=== PATIENT | female | born 1980 | race Caucasian/White ===

== ENCOUNTER → 2020-07-23 12:22 | Outpatient (BNVA) | payer OTHER, SELFPAY | PROVIDERS: PCP Family Medicine; Visit Provider Dietitian, Registered | DX: Z76.89 Persons encountering health services in other specified circumstances (principal) ==

== ENCOUNTER → 2020-08-12 13:55 | Outpatient (BNVA) | payer OTHER, SELFPAY | PROVIDERS: PCP Family Medicine; Visit Provider Surgery | DX: E66.3 Overweight (principal); Z68.26 Body mass index [BMI] 26.0-26.9, adult; Z98.84 Bariatric surgery status | CPT/HCPCS: 99212 ==

== ENCOUNTER 2020-09-02 08:54 | Day surgery (SDC) | payer OTHER, SELFPAY ==
--- NOTE | 2020-09-01 12:07 | HO.ANESPROP2 ---
HPI - Anesthesia Eval Consult details Narrative: 39yo F for Upper Endoscopy s/p LRYGB 05/19/20 [facility] Past Medical History Medical History Depression HTN (hypertension) Metabolic syndrome Overweight with body mass index (BMI) 25.0-29.9 PCOS (polycystic ovarian syndrome) Sleep apnea Family History Family History Father No problems noted. Mother Alzheimer's dementia Surgical History Surgical History History of adenoidectomy Hx of gastric bypass Hx of tonsillectomy S/P gastric bypass S/P laparoscopic cholecystectomy Social History Social History Alcohol intake: never Smoking Status: Current every day smoker Packs Per Day: 0.5 Cigarettes Per Day: 10.0 Second Hand Smoke Exposure: No Use of substances other than those prescribed or required for medical reasons: No Advance Directives: No Advance Directives Information Provided: No Advance Directives on File: No Meds Allergies Allergy/AdvReac Type Severity Reaction Status Date / Time No Known Allergies Allergy Verified 09/02/20 09:37 [No Known Allergies*] Home Medications Medication Instructions Recorded Confirmed Type mbiihnpj-dlfuyhvn-ynay 45 mg-folic cap PO 08/12/20 08/12/20 History acid 800 mcg-vit K 120 mcg capsule venlafaxine 150 mg 150 mg PO DAILY 08/12/20 08/12/20 History capsule,extended release 24 hr Exam Exam Date and Time: September 01, 2020 1207 Pertinent Lab Results Pertinent Lab Results: Laboratory Tests 05/20/20 05/20/20 04:02 04:02 WBC 13.9 H Hgb 12.8 Hct 38.5 Plt Count 220 Sodium 137 Potassium 4.0 Chloride 104 BUN 7 L Creatinine 0.68
[2020-09-01 14:17] VITALS: BMI 26.1
[2020-09-02 09:08] VITALS: BP 112/69; PULSE 54; RESP 16; TEMP 37.2; O2SAT 100
[2020-09-02 09:22] LABS: UPreg QC Valid YES
[2020-09-02 09:23] LABS: Urine Pregnancy NEGATIVE (NEGATIVE)
[2020-09-02] MEDS: Lactated Ringers 1,000 ML 100 ML IVCONT (09:36)
--- NOTE | 2020-09-02 10:41 | MHC.SHP ---
Pre-Procedural Eval Section A The patient is an INPATIENT: No The History & Physical has been completed within 30 days and I have reviewed it.: Yes Section B Chief Complaint: Epigastric Pain, Post gastric bypass Details of Present Illness: Epigastric pain after gastric bypass Relevant Family History (Specify if Yes): Yes Relevant Social History: Tobacco Use (re-started smoking) Present Medications: see Short Stay Collaborative assessment Medical History: No relevant PMH History of Previous Operations: Relevant previous surgery/procedure and date(s) (lap gastric bypass) Allergies: Allergies Allergy/AdvReac Type Severity Reaction Status Date / Time No Known Allergies Allergy Verified 09/02/20 09:37 [No Known Allergies*] Review of Systems Sugical H&P ROS: Negative: Constitution, Cardiovascular, Respiratory, Neurological, Psychiatric, Hem-Onc, Allergic/Immunologic, Gastrointestinal, Genitourinary, Musculoskeletal, Integumentary, Endocrine and Eyes/Ears/Nose/Throat Exam Surgical H&P Exam: Normal: HEENT, Normal: Heart, Normal: Lungs, Normal: Extremities, Normal: Abdomen, Normal: Skin and Normal: Neurological Plan Diagnosis/Plan: Unchanged (Upper endoscopy to assess patient's symptoms and rule out an anastomotic ulcer) Patient has been examined and remains a candidate for the planned procedure
--- NOTE | 2020-09-02 11:32 | HO.ANESPROP2 ---
FORMERLY [facility] Past Medical History Medical History Depression HTN (hypertension) Metabolic syndrome Overweight with body mass index (BMI) 25.0-29.9 PCOS (polycystic ovarian syndrome) Sleep apnea Family History Family History Father No problems noted. Mother Alzheimer's dementia Surgical History Surgical History History of adenoidectomy Hx of gastric bypass Hx of tonsillectomy S/P gastric bypass S/P laparoscopic cholecystectomy Social History Social History Alcohol intake: never Smoking Status: Current every day smoker Packs Per Day: 0.5 Cigarettes Per Day: 10.0 Second Hand Smoke Exposure: No Use of substances other than those prescribed or required for medical reasons: No Advance Directives: No Advance Directives Information Provided: No Advance Directives on File: No Meds Allergies Allergy/AdvReac Type Severity Reaction Status Date / Time No Known Allergies Allergy Verified 09/02/20 09:37 [No Known Allergies*] Home Medications Medication Instructions Recorded Confirmed Type mtppijnw-unldbsva-pnhc 45 mg-folic cap PO 08/12/20 08/12/20 History acid 800 mcg-vit K 120 mcg capsule venlafaxine 150 mg 150 mg PO DAILY 08/12/20 08/12/20 History capsule,extended release 24 hr Exam Exam Date and Time: September 02, 2020 1132 Height,Weight and Vital Signs: Height 5 ft 10 in Weight 82.667 kg Last Vital Signs Temp 99 F 09/02/20 09:08 Pulse 54 09/02/20 09:08 Resp 16 09/02/20 09:08 BP 112/69 09/02/20 09:08 Pulse Ox 100 09/02/20 09:08 Pertinent Lab Results Pertinent Lab Results: Laboratory Tests 09/02/20 09:05 Urine Test NEGATIVE Airway Mallampati Class: II TM Dist: >3cm Neck ROM: Full
[2020-09-02 12:01] VITALS: BP 118/65; PULSE 65; RESP 12; TEMP 36.9; O2SAT 99
--- NOTE | 2020-09-02 12:04 | P.BOP_ITS ---
Brief Operative Note Date of Service: 09/02/20 Pre-op diagnosis: Epigastric pain, s/p gastric bypass Post-op diagnosis: same (1) Anastomotic ulcer, 2) 2cm hiatal hernia, 3) small anastomosis in relation to the gastric pouch size) Procedure: PROCEDURE DATE: 09/02/2020 PREOPERATIVE DIAGNOSIS: Epigastric pain, s/p gastric bypass POSTOPERATIVE DIAGNOSIS: Same as above. 1) anastomotic ulcer, 2) 2cm hiatal hernia, 3) small anastomosis in relation to the pouch size PROCEDURE: Twajdvco-adrhkc-wrxqbrghjqk with biopsies Surgeon: Fabian Taylor M.D.. Ph.D. Facilities Management Executive: None Anesthesia: IV sedation Estimated blood loss: Minimal FINDINGS AND PROCEDURE: OPERATIVE INDICATIONS: The patient is a 39 year old female known to me who underwent a laparoscopic gastric bypass by Dr. Palmer. The patient was doing well but recently re-started smoking and developed epigastric pain. Based on this information I recommended an upper endoscopy to evaluate the patient's symptoms. Risks and complications of the surgery were discussed with the patient in advance particularly the possibility of perforation or bleeding that may require surgical intervention. The patient understood the risks and was in agreement with the plan. PROCEDURE: After informed consent was obtained by the patient, the patient was transferred to the Operating Room and was placed in the supine position. After successful induction of IV sedation, a mouth block was placed and the patient was placed in the left lateral decubitus position. An upper endoscopy was performed next, the oropharynx and esophagus appeared within the normal limits. There was a 2cm hiatal hernia. The z-line was smooth. The gastric pouch was entered, appeared to be of normal size. There was no gastritis and the gastrojejunostomy was patent but its size was small in relation to the pouch size. A biopsy was obtained from the gastric pouch. No significant bleeding was noted from any of the biopsy site. There was an anastomotic ulcer at the gastro-jejunostomy. There was surrounding edema and erythema. At that point the scope was advanced into the proximal small intestine (proximal Marilu limb) which appeared to be normal. The Marilu limb and the pouch were decompressed and the scope was withdrawn from the patient's mouth. The patient was awaken and was transferred in stable condition to the Recovery Room for further care. I was present and performed all steps of the procedure. There were no residents to assist with this case. Fabian Taylor M.D., Ph.D. Surgeon: Jarrett Taylor MD Anesthesia: MAC Estimated blood loss (mL): 5 IV fluids (mL): 250 Urine output (mL): 0 (No Jain to record) Pathology: other (Gastric pouch x1) Condition: stable Disposition: PACU
[2020-09-02 12:12] VITALS: BP 112/67; PULSE 60; RESP 18; TEMP 36.2; O2SAT 97
--- NOTE | 2020-09-02 12:32 | HO.POSTANES ---
Post Anesthesia Evaluation Post Anesthesia Evaluation Vital Signs: Vital Signs Temp Pulse Resp BP Pulse Ox 09/02/20 12:12 97.2 F 60 18 112/67 97 09/02/20 12:01 98.4 F 65 12 118/65 99 09/02/20 09:08 99 F 54 16 112/69 100 Anesthesia: Monitored Mental Status: Awake Pain Control: Satisfactory Nausea/Vomiting: None Hydration: Adequate Anesthesia-Related Issues: No Anes. Related Issues
== END 2020-09-02 12:35 | disposition home or self-care (01) ==
LOC: HO.SSS 08:55
PROVIDERS: Nurse Practitioner; Visit Provider Surgery
PROC: 0DJ08ZZ Inspection of Upper Intestinal Tract, Via Natural or Artificial Opening Endoscopic (ICD-10-PCS; CPT 43235; principal; 2020-09-02 09:50)
DX: K28.9 Gastrojejunal ulcer, unspecified as acute or chronic, without hemorrhage or perforation (principal); Z98.84 Bariatric surgery status; K44.9 Diaphragmatic hernia without obstruction or gangrene; E88.81 Metabolic syndrome and other insulin resistance; E66.3 Overweight; Z68.26 Body mass index [BMI] 26.0-26.9, adult; I10 Essential (primary) hypertension; E28.2 Polycystic ovarian syndrome; F17.210 Nicotine dependence, cigarettes, uncomplicated; G47.30 Sleep apnea, unspecified; Z90.49 Acquired absence of other specified parts of digestive tract; Z79.899 Other long term (current) drug therapy
CPT/HCPCS: 43239; 81025; 88305; 88342; J1100; J2250

== ENCOUNTER → 2020-09-03 08:04 | Outpatient (BNVA) | payer OTHER, SELFPAY | PROVIDERS: PCP Internal Medicine; Referring Provider Internal Medicine; Visit Provider Physician Assistant | DX: Z76.89 Persons encountering health services in other specified circumstances (principal) ==

== ENCOUNTER 2020-09-22 07:32 | Day surgery (SDC) | payer OTHER, SELFPAY ==
[2020-09-16 14:19] VITALS: BMI 26.1
--- NOTE | 2020-09-21 12:43 | HO.ANESPROP2 ---
Documented by User: Mya Rossi 09/21/20 12:46 HPI - Anesthesia Eval Consult details Narrative: 39yo F for Upper Endoscopy s/p gastric bypass 05/2020 Last EGD 08/2020 [facility] Past Medical History Medical History Depression HTN (hypertension) Intestinal malabsorption following gastrectomy Marginal ulcer Metabolic syndrome Overweight with body mass index (BMI) 25.0-29.9 PCOS (polycystic ovarian syndrome) Sleep apnea Family History Family History Father No problems noted. Mother Alzheimer's dementia Surgical History Surgical History History of adenoidectomy History of esophagogastroduodenoscopy (EGD) Hx of gastric bypass Hx of tonsillectomy S/P gastric bypass S/P laparoscopic cholecystectomy Social History Social History Alcohol intake: never Smoking Status: Former smoker Packs Per Day: 0.5 Cigarettes Per Day: 10.0 Second Hand Smoke Exposure: No Use of substances other than those prescribed or required for medical reasons: No Advance Directives: No Advance Directives Information Provided: Yes Meds Allergies Allergy/AdvReac Type Severity Reaction Status Date / Time No Known Allergies Allergy Verified 09/02/20 09:37 [No Known Allergies*] Home Medications Medication Instructions Recorded Confirmed Type zvkoaace-uocwfreu-syva 45 mg-folic 1 cap PO DAILY 08/12/20 09/16/20 History acid 800 mcg-vit K 120 mcg capsule venlafaxine 150 mg 150 mg PO DAILY 08/12/20 09/16/20 History capsule,extended release 24 hr Exam Exam Date and Time: September 21, 2020 1243 Height,Weight and Vital Signs: Height 5 ft 10 in Weight 82.554 kg Assessment and Plan Assessment Anesthesia Assessment: Chart Reviewed Documented by User: Evita Lara 09/22/20 08:07 [facility] Past Medical History Medical History Depression HTN (hypertension) Intestinal malabsorption following gastrectomy Marginal ulcer Metabolic syndrome Overweight with body mass index (BMI) 25.0-29.9 PCOS (polycystic ovarian syndrome) Sleep apnea Family History Family History Father No problems noted. Mother Alzheimer's dementia Surgical History Surgical History History of adenoidectomy History of esophagogastroduodenoscopy (EGD) Hx of gastric bypass Hx of tonsillectomy S/P gastric bypass S/P laparoscopic cholecystectomy Social History Social History Alcohol intake: never Smoking Status: Former smoker Packs Per Day: 0.5 Cigarettes Per Day: 10.0 Second Hand Smoke Exposure: No Use of substances other than those prescribed or required for medical reasons: No Advance Directives: No Advance Directives Information Provided: Yes Meds Allergies Allergy/AdvReac Type Severity Reaction Status Date / Time No Known Allergies Allergy Verified 09/02/20 09:37 [No Known Allergies*] Home Medications Medication Instructions Recorded Confirmed Type yfyxcfdy-blrgcldc-siwc 45 mg-folic 1 cap PO DAILY 08/12/20 09/16/20 History acid 800 mcg-vit K 120 mcg capsule venlafaxine 150 mg 150 mg PO DAILY 08/12/20 09/16/20 History capsule,extended release 24 hr Exam Airway Mallampati Class: II TM Dist: >3cm Neck ROM: Full Loose/Missing/Broken Teeth: No Heart: RRR Lungs: CTA Assessment and Plan Assessment Anesthesia Assessment: Anesthesia Plan Discussed and Chart Reviewed Final Anesthetic Review NPO: Yes ASA Class: II Final Preanesthetic Review: Meds/Allgs Chart Reviewed, Consent Obtained/Reviewed and Anes Risks/Benef Reviewed Patient Risk: Low Procedure Risk: Intermediate Anesthetic Plan Anesthetic Plan: MAC: Disposition: Standard PACU
--- NOTE | 2020-09-21 17:21 | MHC.SHP ---
Pre-Procedural Eval Section B Chief Complaint: Ulcer Allergies: Allergies Allergy/AdvReac Type Severity Reaction Status Date / Time No Known Allergies Allergy Verified 09/02/20 09:37 [No Known Allergies*] Plan Patient has been examined and remains a candidate for the planned procedure
--- NOTE | 2020-09-21 17:21 | PM.PNGS ---
Subjective Subjective Date of Service: 09/21/20 Interval history: patient is few months status post gastric bypass and noted to have started smoking again about half pack to a pack cigarettes per day 1 week after surgery. Little over a month ago patient was encouraged to quit smoking. Shortly thereafter patient had epigastric pain. She had an endoscopy which documented marginal ulcer. Patient is now here for repeat endoscopy to evaluate improvement and marginal ulcer. Physical Exam Vital Signs: Vital Signs: Body Mass Index 26.1 Const: General: cooperative, healthy appearing and comfortable Resp: Effort & Inspection: normal respiratory effort and no audible wheezes Auscultation: clear to auscultation bilaterally Cardio: Heart sounds: S1 normal heart sound present, S2 normal heart sound present and normal S1 and S2 Extrem: General: Yes normal to inspection, Yes no pedal edema and Yes no calf tenderness Progress Note: A&P Assessment and plan (1) Marginal ulcer: Status: Acute Assessment and Plan: Patient with known marginal ulcer here for repeat endoscopy to evaluate healing of marginal ulcer. Time Spent With Patient Time: Total time spent is greater than 50% in coordination of care (as documented) at patient's floor/unit and/or counseling patient: Time with patient: less than 15 minutes
[2020-09-22 07:43] VITALS: BMI 26.1
[2020-09-22 07:49] VITALS: BP 111/54; PULSE 51; RESP 16; TEMP 37.1; O2SAT 99
[2020-09-22 08:42] VITALS: BP 96/42; PULSE 52; RESP 12; TEMP 36.4; O2SAT 99
[2020-09-22] MEDS: ondansetron HCL 4 MG/2 ML VIAL IVPUSH (08:54)
[2020-09-22 08:57] VITALS: BP 103/69; PULSE 57; RESP 16; O2SAT 96
--- NOTE | 2020-09-22 09:06 | OP_ITS ---
SURGEON: Vickie Palmer MD PREOPERATIVE DIAGNOSIS: POSTOPERATIVE DIAGNOSIS: PROCEDURE PERFORMED: ESTIMATED BLOOD LOSS: COMPLICATIONS: None. ANESTHESIA: Total intravenous anesthesia with propofol given by the nurse surgical asst. ASSISTANTS: None. SPECIMENS: PREPROCEDURE DIAGNOSIS: Anastomotic ulcerations, status post gastric bypass. POSTPROCEDURE DIAGNOSIS: Healed anastomotic ulcer. PROCEDURES PERFORMED: 1. esophagogastrojejunoscopy 2. Enteroscopy to 90 cm from incisors. FINDINGS: No evidence of hiatal hernia. Normal gastric bypass anatomy. No evidence of anastomotic ulcer. CONDITION: Postprocedure, good. DESCRIPTION OF PROCEDURE: The patient was brought into the operating room, placed on the stretcher in the left lateral decubitus position. A safety time-out was performed. A total intravenous anesthesia was given using propofol by the nurse surgical asst. Once the patient was adequately sedated, gastroscope was placed into posterior oropharynx, passed down the esophagus, evaluating esophageal mucosa which was normal. The GE junction was located at 43 cm from the incisors. There was no evidence of ulceration of the esophagus or hiatal hernia. Gastroscope was passed into the gastric pouch. The anastomosis was located at 48 cm from the incisors. There was no evidence of anastomotic ulcer. The gastroscope was passed into the efferent limb of the Marilu limb down to 90 cm from the incisors, all of which was normal. Gastroscope was retracted back to the stomach. Stomach was desufflated and the gastroscope was removed without difficulty. The patient tolerated the procedure well and was sent to recovery room in stable condition. Vickie Palmer MD UM/MODL / [id number] MTDD
[2020-09-22 09:10] VITALS: BP 111/67; PULSE 58; RESP 18; O2SAT 98
--- NOTE | 2020-09-22 09:23 | HO.POSTANES ---
Post Anesthesia Evaluation Post Anesthesia Evaluation Vital Signs: Vital Signs Temp Pulse Resp BP Pulse Ox 09/22/20 09:10 58 18 111/67 98 09/22/20 08:57 57 16 103/69 96 09/22/20 08:42 97.5 F 52 12 96/42 L 99 09/22/20 07:49 98.7 F 51 16 111/54 L 99 Anesthesia: Monitored Mental Status: Awake Pain Control: Satisfactory Nausea/Vomiting: None Hydration: Adequate Anesthesia-Related Issues: No Anes. Related Issues
== END 2020-09-22 09:28 | disposition home or self-care (01) ==
PROVIDERS: Visit Provider Surgery
PROC: 0DJ08ZZ Inspection of Upper Intestinal Tract, Via Natural or Artificial Opening Endoscopic (ICD-10-PCS; CPT 43235; principal; 2020-09-22 08:00)
DX: K28.9 Gastrojejunal ulcer, unspecified as acute or chronic, without hemorrhage or perforation (principal); Z98.84 Bariatric surgery status; E66.3 Overweight; E88.81 Metabolic syndrome and other insulin resistance; I10 Essential (primary) hypertension; E28.2 Polycystic ovarian syndrome; F32.9 Major depressive disorder, single episode, unspecified; Z90.49 Acquired absence of other specified parts of digestive tract; F17.210 Nicotine dependence, cigarettes, uncomplicated; Z79.899 Other long term (current) drug therapy
CPT/HCPCS: 43235; 99024; J2405; J3010

== ENCOUNTER → 2020-10-26 08:19 | Outpatient (BNVA) | payer OTHER, SELFPAY | PROVIDERS: Visit Provider Physician Assistant | DX: Z76.89 Persons encountering health services in other specified circumstances (principal) ==

== ENCOUNTER 2020-10-28 11:12 | Outpatient (REF) | payer OTHER, SELFPAY ==
[2020-10-28 13:21] LABS: MANUAL DIFF FLAG NO
[2020-10-28 13:46] LABS: Basophils Percent Auto 0.5 % (0-2); Eosinophils Absolute Auto 0.1 X10*3/uL (0.0-0.4); Eosinophils Percent Auto 1.9 % (0-4); Hematocrit 44.8 % (37-47); Hemoglobin 14.7 g/dl (12.0-16.0); Imm Gran Abs Auto 0.03 X10*3/uL (0.00-0.03); Imm Gran Pct Auto 0.4 % (0.0-0.4); Lymphocytes Absolute Auto 2.4 X10*3/uL (1.2-4.9); Lymphocytes Percent Auto 33.2 % (20-40); Mean Corpuscular HGB Conc 32.8 g/dl (31.0-35.0); Mean Corpuscular Volume 94.5 fL (80-98); Mean Platelet Volume 11.1 fL (9.4-12.3); Monocytes Absolute Auto 0.5 X10*3/uL (0.1-1.2); Monocytes Percent Auto 7.1 % (2-11); Neutrophils Absolute Auto 4.2 X10*3/uL (2.0-8.3); Neutrophils Percent Auto 56.9 % (45-73); Platelet Count 234 X10*3/uL (160-400); Red Blood Count 4.74 X10*6/uL (4.20-5.50); Red Cell Distribution Width 12.7 % (11.0-16.0); White Blood Count 7.3 X10*3/uL (4.8-10.8)
[2020-10-28 13:50] LABS: Estimated Average Glucose 94 mg/dL; Hemoglobin A1c % 4.9 %
[2020-10-28 14:04] LABS: Alanine Aminotransferase 33 U/L (0-31); Albumin Level 4.2 g/dL (3.5-5.0); Alkaline Phosphatase 100 U/L (39-117); Anion Gap 12 (12-20); Aspartate Amino Transferase 32 U/L (5-31); Bilirubin Total 0.6 mg/dL (0.0-1.0); Blood Urea Nitrogen 8 mg/dL (9-16); C Reactive Protein 0.02 mg/dL (< or = 0.50); Calcium 8.7 mg/dL (8.4-10.2); Carbon Dioxide 28 mmol/L (22-29); Chloride 105 mmol/L (96-108); Cholesterol 127 mg/dL; Estimated Glomerular Filt Rate > 60; Glucose Fasting 82 mg/dL (60-99); HDL Cholesterol 40 mg/dL; Iron 77 mcg/dL (30-160); LDL Cholesterol Calculated 77 mg/dl; Percent Iron Saturation 22 % (15-50); Potassium 4.1 mmol/l (3.3-5.1); Sodium 141 mmol/L (135-145); Total Iron Binding Capacity 348 mcg/dL (228-428); Total Protein 6.2 g/dL (6.5-8.0); Triglycerides 51 mg/dL; Unsaturated Iron Binding 271 ug/dL
[2020-10-28 14:28] LABS: Ferritin 20 ng/mL (10-122); TSH reflex Free T4 1.29 mIU/mL (0.32-4.0); Vitamin D 25-OH Total 48.3 ng/mL (>30)
[2020-10-28 14:32] LABS: Folate > 20.0 ng/mL (> or = 4.0); Vitamin B12 467 pg/mL (200-900)
[2020-10-29 12:08] LABS: Insulin Level Total 4.6 uIU/mL
[2020-10-29 16:52] LABS: Calcium (PTHI) 9.1 mg/dL (8.6-10.2); PTHI 46 pg/mL (14-64)
[2020-10-30 15:37] LABS: Zinc 53 mcg/dL (60-130)
[2020-11-02 06:33] LABS: Vitamin B1 29 nmol/L (8-30)
[2020-11-03 17:47] LABS: Vitamin A 30 mcg/dL (38-98)
== END 2020-10-28 11:13 | disposition home or self-care (01) ==
LOC: HO.LAB 11:12
PROVIDERS: Absent Provider Physician Assistant; PCP Family Medicine; Visit Provider Surgery
DX: K91.2 Postsurgical malabsorption, not elsewhere classified (principal); K28.9 Gastrojejunal ulcer, unspecified as acute or chronic, without hemorrhage or perforation; F17.210 Nicotine dependence, cigarettes, uncomplicated; Z71.3 Dietary counseling and surveillance; Z98.84 Bariatric surgery status; Z79.899 Other long term (current) drug therapy
CPT/HCPCS: 36415; 80053; 80061; 82306; 82607; 82728; 82746; 83036; 83525; 83540; 83970; 84425; 84443; 84590; 84630; 85025; 86140; 99212

== ENCOUNTER → 2020-11-11 08:08 | Outpatient (BNVA) | payer OTHER, SELFPAY | PROVIDERS: PCP Family Medicine; Visit Provider Dietitian, Registered ==

== ENCOUNTER → 2020-11-26 08:36 | Outpatient (BNVA) | payer OTHER, SELFPAY | PROVIDERS: PCP Family Medicine; Visit Provider Surgery ==

== ENCOUNTER → 2021-01-14 08:07 | Outpatient (BNVA) | payer OTHER, SELFPAY | PROVIDERS: PCP Family Medicine; Visit Provider Physician Assistant ==

== ENCOUNTER 2021-01-14 09:11 | Inpatient (IN) | payer OTHER, SELFPAY ==
--- NOTE | ~2021-01-14 | CT_ITS ---
EXAMINATION: CT ABDOMEN AND PELVIS WITH CONTRAST CLINICAL INFORMATION: Intussusception. Compared to previous exams. COMPARISON: 01/14/2021 TECHNIQUE: Multidetector volumetric images were obtained from the superior aspect of the liver through the pubic symphysis following administration 85 mL of Omnipaque 350 intravenous contrast. Sagittal and coronal reformatted images were obtained on the technologist's workstation. Oral contrast: No This CT examination was performed using dose optimization techniques as appropriate, variously including the following: *Automated exposure control *Adjustment of mA and/or kV according to patient size (this includes techniques or standardized protocols for targeted exams where dose is matched to indication/reason for exam; i.e. extremities or head) *Use of iterative reconstruction technique DLP: 520 mGy-cm FINDINGS: LUNG BASES: The visualized lung bases are unremarkable. LIVER, GALLBLADDER, AND BILIARY TREE: The liver is normal in size, shape, and attenuation. No focal hepatic lesion or biliary ductal dilatation is present. Gallbladder not well seen. PANCREAS: Unremarkable. SPLEEN: Unremarkable. ADRENAL GLANDS: Unremarkable. KIDNEYS AND URETERS: The kidneys are normal in size, shape, and attenuation. No hydronephrosis, hydroureter, or calculi seen. No perinephric stranding. BLADDER: Unremarkable. GASTROINTESTINAL TRACT: Previously seen small bowel intussusception within the pelvis is no longer present. Submucosal edema present throughout the colon suggestive of colitis. There is also significant submucosal edema within the terminal and distal ileum. Marilu-en-Y gastrojejunostomy. ABDOMINAL WALL: No significant hernia is appreciated. LYMPH NODES: Normal. VASCULAR: Unremarkable. PELVIC VISCERA: Uterus and adnexa unremarkable. OSSEOUS STRUCTURES: Unremarkable. CT/CT abdomen pelvis w con IMPRESSION: * Previously seen small bowel intussusception within the pelvis has resolved. * Diffuse submucosal edema throughout the colon as well as the terminal ileum suggesting an enterocolitis. Infectious and inflammatory etiologies should be considered.
--- NOTE | ~2021-01-14 | CT_ITS ---
EXAMINATION: CT ABDOMEN AND PELVIS WITH CONTRAST CLINICAL INFORMATION: Nausea, vomiting and diarrhea with abdominal pain COMPARISON: None TECHNIQUE: Multidetector volumetric images were obtained from the superior aspect of the liver through the pubic symphysis following administration 85 mL of Omnipaque 350 intravenous contrast. Sagittal and coronal reformatted images were obtained on the technologist's workstation. Oral contrast: No This CT examination was performed using dose optimization techniques as appropriate, variously including the following: *Automated exposure control *Adjustment of mA and/or kV according to patient size (this includes techniques or standardized protocols for targeted exams where dose is matched to indication/reason for exam; i.e. extremities or head) *Use of iterative reconstruction technique DLP: 523 mGy-cm FINDINGS: LUNG BASES: The visualized lung bases are unremarkable. LIVER, GALLBLADDER, AND BILIARY TREE: The liver is normal in size, shape, and attenuation. No focal hepatic lesion. There is mild prominence of intrahepatic duct. The CBD is is normal caliber. The gallbladder is contracted and barely visible. PANCREAS: Unremarkable. SPLEEN: Unremarkable. ADRENAL GLANDS: Unremarkable. KIDNEYS AND URETERS: The kidneys are normal in size, shape, and attenuation. No hydronephrosis, hydroureter, or calculi seen. No perinephric stranding. BLADDER: Unremarkable. GASTROINTESTINAL TRACT: There is a distended loop of small bowel in the upper mid pelvis it has an appearance of intussusception. This segment is approximately 7 cm long. There is a small round lesion within the lumen of the inner bowel and may represent a small polyp or mass. It is best visualized on axial image 70/3. There is mild proximal small bowel distention with gas but no air-fluid level. The small bowel surgical sutures in the left upper pelvis from previous intervention. There is evidence of previous gastric bypass surgical changes. The stomach is nondistended. There is scattered stool in the left colon. There is mild mucosal thickening or submucosal mucosal fat deposition in the right colon which could be secondary to chronic inflammatory disease. No free air or free fluid seen. Oral contrast extends only into the proximal jejunal loops. ABDOMINAL WALL: No significant hernia is appreciated. LYMPH NODES: Normal. VASCULAR: Unremarkable. PELVIC VISCERA: The uterus is anteverted and unremarkable. There is focal enhancement seen along the posterior wall which may represent a small fibroid on on sagittal image 46/8. OSSEOUS STRUCTURES: Unremarkable CT/CT abdomen pelvis w con IMPRESSION: Small bowel intussusception upper mid pelvis with early partial small bowel obstruction. There is question of polyp or mass within the inner lumen of the intussuscepted bowel loop as described above. There are postsurgical changes mid small bowel loops and gastric bypass surgery. Nonspecific submucosal thickening and fat deposition ascending colon. Results were discussed with Zeinab Odom by phone in the ER at 12:35 PM
[2021-01-14 09:16] VITALS: BP 127/58; PULSE 93; RESP 14; TEMP 37.1; O2SAT 98; BMI 22.8
[2021-01-14] MEDS: Acetaminophen 325 MG TABLET 975 MG PO (10:33)
[2021-01-14] MEDS: ondansetron HCL 4 MG/2 ML VIAL IVPUSH (10:33)
[2021-01-14] MEDS: 0.9 % Sodium Chloride 1,000 ML 999 ML IVCONT (10:33)
[2021-01-14 10:36] LABS: Basophils Percent Auto 0.3 % (0-2); Hematocrit 41.3 % (37-47); Hemoglobin 13.8 g/dl (12.0-16.0); Imm Gran Abs Auto 0.04 X10*3/uL (0.00-0.03); Imm Gran Pct Auto 0.3 % (0.0-0.4); Lymphocytes Absolute Auto 0.6 X10*3/uL (1.2-4.9); Lymphocytes Percent Auto 4.1 % (20-40); MANUAL DIFF FLAG SCAN; Mean Corpuscular HGB Conc 33.4 g/dl (31.0-35.0); Mean Corpuscular Hemoglobin 31.2 pg (27.0-33.0); Mean Corpuscular Volume 93.2 fL (80-98); Mean Platelet Volume 10.2 fL (9.4-12.3); Monocytes Absolute Auto 1.1 X10*3/uL (0.1-1.2); Monocytes Percent Auto 7.4 % (2-11); Neutrophils Absolute Auto 13.5 X10*3/uL (2.0-8.3); Neutrophils Percent Auto 87.9 % (45-73); Platelet Count 205 X10*3/uL (160-400); Red Blood Count 4.43 X10*6/uL (4.20-5.50); SCAN SMEAR FLAG 1; White Blood Count 15.4 X10*3/uL (4.8-10.8)
[2021-01-14 10:39] LABS: INTERNATIONAL NORM RATIO 1.3 (0.9-1.1); Prothrombin Time 15.6 SEC (10.8-13.0)
[2021-01-14 10:41] LABS: Partial Thromboplastin Time 37.5 SEC (24.1-38.0)
--- NOTE | 2021-01-14 10:42 | ED_ITS ---
HPI - Abdominal Pain General Chief Complaint: Abdominal Pain Stated Complaint: abd pain Time Seen by Provider: 01/14/21 09:40 Source: patient Mode of arrival: ambulatory Limitations: no limitations History of Present Illness HPI narrative: A 40-year-old female with a past medical history of overweight status post gastric bypass performed by Dr. Taylor approximately 8 months ago who developed the marginal ulcer confirmed on endoscope 3 months after surgery was placed on a liquid protein diet, Carafate, pantoprazole then she had a repeat EGD on 09/22/2020 showed healed ulcer then patient was following up with bariatric surgeon and was doing well up until a few days ago where she reports she felt like she had food poisoning due to she just felt unwell then last night suddenly woke up with acute lower abdominal pain radiating to her lower back/bilateral hips which she describes 10/10 pain which has improved at this time /10. Patient is currently on Lexapro and pantoprazole although no other new meds. Patient also reports associated diarrhea she reports it has a horrible smell and it is mucousy in texture and she has gone over 100 times. She also reports associated chills. Patient was sent by her bariatric surgical PA Sheridan who recommended CT scan with p.o./IV contrast. NPO, IV fluids and p ain management. Patient denies recent travel, sick contacts or possible bad food exposure. Denies any other symptoms complaints or concerns at this time. Patient denies recent hospitalizations/[facility] visit/currently being on any antibiotics recently being on any antibiotics. MD elicited complaint: abdominal pain Pertinent past history: other (Gastric bypass) Onset (ago): day(s) (Since last night worse today) Pain Consistency: constant Location: RLQ and LLQ Severity: moderate Quality: dull Radiation: other (Lower back and bilateral hips) Exacerbating factors: nothing Associated symptoms: nausea, vomiting, diarrhea and chills Related Data Home Medications Medication Instructions Recorded Confirmed njwpreag-cgovvzug-olmi 45 mg-folic 1 cap PO BEDTIME 08/12/20 01/14/21 acid 800 mcg-vit K 120 mcg capsule calcium citrate 1,000 mg tablet 1,000 mg PO BEDTIME 10/28/20 01/14/21 omeprazole 20 mg PO BEDTIME 01/14/21 01/14/21 venlafaxine 1 tab PO BEDTIME 01/14/21 01/14/21 Allergies Allergy/AdvReac Type Severity Reaction Status Date / Time No Known Allergies Allergy Verified 01/14/21 08:47 [No Known Allergies*] Review of Systems Review of Systems Constitutional : +Chills, No Weight loss, No Fever, No Night Sweats, No Fatigue, No Malaise ENT/Mouth: No ear pain, No sore throat, No Difficulty swallowing Cardiovascular : No Chest Pain, No SOB, No Dyspnea on Exertion, No Orthopnea, NoEdema, No Palpitations Respiratory : No Cough, No Sputum, No Wheezing, No Dyspnea Gastrointestinal : + Nausea, + Vomiting, + lower abdominal pain, + Diarrhea, No blood streaked emesis, No coffee-ground emesis, No gross hematemesis, No blood streak stool, No gross hematochezia, No Melena Genitourinary : No irregular bleeding, No Dysuria, No Urinary Frequency, No Hematuria,No Urinary Incontinence, No Urgency, No Flank Pain Musculoskeletal : No joint pain, No Myalgias, No Joint Swelling Skin : No Skin Lesions, No rash Neuro : No Weakness, No Numbness, No Paresthesias, No Loss of Consciousness, NoDizziness, No Headache Psych : No Social Issues, Heme/Lymph: No Bruising, No Bleeding,No Lymphadenopathy Endocrine : No Polyuria, No Polydipsia, No Temperature Intolerance Yes all other systems are reviewed and are negative Physical Exam Vital Signs: Vital Signs: Last Vital Signs Temp 99.0 F 01/14/21 11:54 Pulse 63 01/14/21 14:44 Resp 14 01/14/21 14:44 BP 100/50 L 01/14/21 14:44 Pulse Ox 97 01/14/21 14:44 Body Mass Index 22.8 Course Course Course Narrative: 10:15am - 40-year-old female who is status post gastric bypass performed by Dr. Taylor approximately 8 months ago sent in by bariatric PA Sheridan Gonzalez for further evaluation treatment due to the patient has been having nausea/vom iting/mucus foul-smelling diarrhea with associated lower abdominal pain since last night with associated chills. Abdominal pain radiates to lower back and bilateral hips. - On exam patient is alert and oriented x3. In pain although no other acute distress. Vital signs are stable within normal limits. Patient is tolerating her secretions no active dry heaving or vomiting noted at this time. Lungs CTA. CV RRR. Abdomen is soft although patient with moderate tenderness diffusely worse in the lower quadrants. Not consistent with acute abdomen. No CVA tenderness is noted. - Concern for perforation vs Ulcer vs appendicitis vs gastritis vs UTI/pyelonephritis - Plan: Labs, CT scan f abd/pelvis c both PO/IV contrast, stool culture. Provide fluids. We will also provide 4 mg of IV Zofran. I offered the patient morphine although patient declined any strong pain medications and she cannot h ave any NSAIDs therefore I ordered Tylenol although the bariatric PA did not want the patient to have Tylenol p.o. when I went to cancel it the nurse had already given it and usually we have to have approval from surgery to be approved to pharmacy to order IV Tylenol here in the ED therefore for next dose this will be done. Will not give anything else p.o. Patient tolerated the Tylenol fine. We will then re-evaluate. Reevaluation(s) Reevaluation #1: - patient mildly tachycardic at 93 and has an elevated white blood cell count at 15,000 therefore is meeting SIRs at this time will obtain blood cultures and lactic acid. No source of infection at this time will hold off on IV antibiotics. Time: 11:45 Reevaluation #2: - I was called by Dr. Mart the radiologist and he reported that the patient has Small bowel intussusception upper mid pelvis with early partial small bowel obstruction. There is question of polyp or mass within the inner lumen of the intussuscepted bowel loop as described above in CT scan. There are postsurgical changes mid small bowel loops and gastric bypass surgery. Nonspecific submucosal thickening and fat deposition ascending colon. - therefore consulted with the bariatric ROSA Gonzalez and her and Dr. isela Ledesma reviewing the labs and imaging. - will give a dose of Zosyn. Time: 12:35 Reevaluation #3: - Dr. Taylor and bariatric ROSA Gonzalez requested a stat repeat CBC and lactic acid - CBC returned at this time and improved to 11,000. - pending lactic acid - still awaiting plan from bariatric ROSA Gonzalez as she has not explain to me what the plan will be since I spoke to them about the CT scan results at 12:35. I will continue to tiger connect with her until a plan is in place. Time: 14:55 Additional Reevaluation(s): 15:30pm - bariatric ROSA Gonzalez spoke to Dr. Taylor and they decided to admit at this time therefore admit orders at this time. Patient understands agrees with this plan. MDM - Abdominal Pain Medical Records Attestation: I reviewed the patient's medical records. Lab Data Attestation: I reviewed the patient's lab results. Result diagrams: 01/14/21 14:25 01/14/21 10:27 Labs: Lab Results 01/14/21 01/14/21 01/14/21 Range/Units 10:27 10:27 10:27 WBC 15.4 H (4.8-10.8) X10*3/uL RBC 4.43 (4.20-5.50) X10*6/uL Hgb 13.8 (12.0-16.0) g/dl Hct 41.3 (37-47) % MCV 93.2 (80-98) fL MCH 31.2 (27.0-33.0) pg MCHC 33.4 (31.0-35.0) g/dl RDW 12.0 (11.0-16.0) % Plt Count 205 (160-400) X10*3/uL MPV 10.2 (9.4-12.3) fL Immature Gran % (Auto) 0.3 (0.0-0.4) % Neut % (Auto) 87.9 H (45-73) % Lymph % (Auto) 4.1 L (20-40) % [place] % (Auto) 7.4 (2-11) % Eos % (Auto) 0.0 (0-4) % Baso % (Auto) 0.3 (0-2) % Lymph # (Auto) 0.6 L (1.2-4.9) X10*3/uL [place] # (Auto) 1.1 (0.1-1.2) X10*3/uL Eos # (Auto) 0.0 (0.0-0.4) X10*3/uL Baso # (Auto) 0.0 (0.0-0.2) X10*3/uL Abs Immat Gran (auto) 0.04 H (0.00-0.03) X10*3/uL Absolute Neuts (auto) 13.5 H (2.0-8.3) X10*3/uL Absolute Nucleated RBC 0.000 (0.0-0.012) X10*3/uL Nucleated RBC % (auto) 0.0 (0.0-0.2) /100WBC Smear Tech's Comments VERIFIED PT 15.6 H (10.8-13.0) SEC INR 1.3 H (0.9-1.1) APTT 37.5 (24.1-38.0) SEC Sodium 136 (135-145) mmol/L Potassium 3.3 (3.3-5.1) mmol/L Chloride 101 (96-108) mmol/L Carbon Dioxide 27 (22-29) mmol/L Anion Gap 11 L (12-20) BUN 11 (9-16) mg/dL Creatinine 0.66 (0.5-1.4) mg/dL Estim Creat Clear Calc 116.5 Estimated GFR > 60 Random Glucose 108 (60-115) mg/dL Lactic Acid (0.5-2.0) mmol/L Calcium 7.7 L D (8.4-10.2) mg/dL Magnesium 1.5 L (1.6-2.6) mg/dL Total Bilirubin 0.8 (0.0-1.0) mg/dL Direct Bilirubin 0.3 (0.0-0.5) mg/dL AST 18 D (5-31) U/L ALT 25 (0-31) U/L Alkaline Phosphatase 100 (39-117) U/L Total Protein 5.3 L (6.5-8.0) g/dL Albumin 3.4 L (3.5-5.0) g/dL Lipase (8-78) U/L Beta HCG, Quant mIU/mL Urine Color Urine Appearance Urine pH (5.0-8.0) Ur Specific [place] (1.005-1.025) Urine Protein (NEG-TRACE) MG/DL Urine Glucose (UA) (NEG) MG/DL Urine Ketones (NEG) MG/DL Urine Blood (NEG) Urine Nitrite (NEG) Ur Leukocyte Esterase (NEG) Coronavirus (PCR) (Negative) Influenza Type A (PCR) (Negative) Influenza Type B (PCR) (Negative) RSV RNA Qual (PCR) (Negative) 01/14/21 01/14/21 01/14/21 Range/Units 10:27 10:27 12:12 WBC (4.8-10.8) X10*3/uL RBC (4.20-5.50) X10*6/uL Hgb (12.0-16.0) g/dl Hct (37-47) % MCV (80-98) fL MCH (27.0-33.0) pg MCHC (31.0-35.0) g/dl RDW (11.0-16.0) % Plt Count (160-400) X10*3/uL MPV (9.4-12.3) fL Immature Gran % (Auto) (0.0-0.4) % Neut % (Auto) (45-73) % Lymph % (Auto) (20-40) % [place] % (Auto) (2-11) % Eos % (Auto) (0-4) % Baso % (Auto) (0-2) % Lymph # (Auto) (1.2-4.9) X10*3/uL [place] # (Auto) (0.1-1.2) X10*3/uL Eos # (Auto) (0.0-0.4) X10*3/uL Baso # (Auto) (0.0-0.2) X10*3/uL Abs Immat Gran (auto) (0.00-0.03) X10*3/uL Absolute Neuts (auto) (2.0-8.3) X10*3/uL Absolute Nucleated RBC (0.0-0.012) X10*3/uL Nucleated RBC % (auto) (0.0-0.2) /100WBC Smear Tech's Comments PT (10.8-13.0) SEC INR (0.9-1.1) APTT (24.1-38.0) SEC Sodium (135-145) mmol/L Potassium (3.3-5.1) mmol/L Chloride (96-108) mmol/L Carbon Dioxide (22-29) mmol/L Anion Gap (12-20) BUN (9-16) mg/dL Creatinine (0.5-1.4) mg/dL Estim Creat Clear Calc Estimated GFR Random Glucose (60-115) mg/dL Lactic Acid 0.7 (0.5-2.0) mmol/L Calcium (8.4-10.2) mg/dL Magnesium (1.6-2.6) mg/dL Total Bilirubin (0.0-1.0) mg/dL Direct Bilirubin (0.0-0.5) mg/dL AST (5-31) U/L ALT (0-31) U/L Alkaline Phosphatase (39-117) U/L Total Protein (6.5-8.0) g/dL Albumin (3.5-5.0) g/dL Lipase 6 L (8-78) U/L Beta HCG, Quant < 2 mIU/mL Urine Color Urine Appearance Urine pH (5.0-8.0) Ur Specific [place] (1.005-1.025) Urine Protein (NEG-TRACE) MG/DL Urine Glucose (UA) (NEG) MG/DL Urine Ketones (NEG) MG/DL Urine Blood (NEG) Urine Nitrite (NEG) Ur Leukocyte Esterase (NEG) Coronavirus (PCR) NEGATIVE (Negative) Influenza Type A (PCR) NEGATIVE (Negative) Influenza Type B (PCR) NEGATIVE (Negative) RSV RNA Qual (PCR) NEGATIVE (Negative) 01/14/21 01/14/21 01/14/21 Range/Units 14:18 14:25 14:25 WBC 11.4 H (4.8-10.8) X10*3/uL RBC 3.91 L (4.20-5.50) X10*6/uL Hgb 12.1 (12.0-16.0) g/dl Hct 36.4 L (37-47) % MCV 93.1 (80-98) fL MCH 30.9 (27.0-33.0) pg MCHC 33.2 (31.0-35.0) g/dl RDW 12.2 (11.0-16.0) % Plt Count 194 (160-400) X10*3/uL MPV 10.2 (9.4-12.3) fL Immature Gran % (Auto) 0.3 (0.0-0.4) % Neut % (Auto) 80.5 H (45-73) % Lymph % (Auto) 10.6 L (20-40) % [place] % (Auto) 7.9 (2-11) % Eos % (Auto) 0.2 (0-4) % Baso % (Auto) 0.5 (0-2) % Lymph # (Auto) 1.2 (1.2-4.9) X10*3/uL [place] # (Auto) 0.9 (0.1-1.2) X10*3/uL Eos # (Auto) 0.0 (0.0-0.4) X10*3/uL Baso # (Auto) 0.1 (0.0-0.2) X10*3/uL Abs Immat Gran (auto) 0.03 (0.00-0.03) X10*3/uL Absolute Neuts (auto) 9.2 H (2.0-8.3) X10*3/uL Absolute Nucleated RBC 0.000 (0.0-0.012) X10*3/uL Nucleated RBC % (auto) 0.0 (0.0-0.2) /100WBC Smear Tech's Comments PT (10.8-13.0) SEC INR (0.9-1.1) APTT (24.1-38.0) SEC Sodium (135-145) mmol/L Potassium (3.3-5.1) mmol/L Chloride (96-108) mmol/L Carbon Dioxide (22-29) mmol/L Anion Gap (12-20) BUN (9-16) mg/dL Creatinine (0.5-1.4) mg/dL Estim Creat Clear Calc Estimated GFR Random Glucose (60-115) mg/dL Lactic Acid 0.6 (0.5-2.0) mmol/L Calcium (8.4-10.2) mg/dL Magnesium (1.6-2.6) mg/dL Total Bilirubin (0.0-1.0) mg/dL Direct Bilirubin (0.0-0.5) mg/dL AST (5-31) U/L ALT (0-31) U/L Alkaline Phosphatase (39-117) U/L Total Protein (6.5-8.0) g/dL Albumin (3.5-5.0) g/dL Lipase (8-78) U/L Beta HCG, Quant mIU/mL Urine Color YELLOW Urine Appearance CLEAR Urine pH 6.5 (5.0-8.0) Ur Specific [place] <= 1.005 (1.005-1.025) Urine Protein NEG (NEG-TRACE) MG/DL Urine Glucose (UA) NEG (NEG) MG/DL Urine Ketones NEG (NEG) MG/DL Urine Blood NEG (NEG) Urine Nitrite NEG (NEG) Ur Leukocyte Esterase NEG (NEG) Coronavirus (PCR) (Negative) Influenza Type A (PCR) (Negative) Influenza Type B (PCR) (Negative) RSV RNA Qual (PCR) (Negative) Imaging Data CT scan of abdomen and pelvis with IV/p.o. Contrast: Attestation: I personally reviewed and interpreted this imaging study as follows: Radiologist's impression: IMPRESSION: Small bowel intussusception upper mid pelvis with early partial small bowel obstruction. There is question of polyp or mass within the inner lumen of the intussuscepted bowel loop as described above. There are postsurgical changes mid small bowel loops and gastric bypass surgery. Nonspecific submucosal thickening and fat deposition ascending colon. Results were discussed with Zeinab Odom by phone in the ER at 12:35 PM Critical Care Time Critical Care Time Critical Care Time: Yes Total Critical Care Time: 60 Attestation: I personally attest to this time spent taking care of the patient Discharge Plan Discharge Clinical Impression: Small bowel intussusception, Partial obstruction of small intestine Patient Disposition: Admitted As Inpatient Prescriptions: No Action venlafaxine 75 mg tablet extended release 24hr 1 tab PO BEDTIME RF: 0 omeprazole 20 mg capsule,delayed release(DR/EC) 20 mg PO BEDTIME RF: 0 calcium citrate 1,000 mg tablet 1,000 mg PO BEDTIME RF: 0 Bariatric Multivitamins 45 mg iron- 800 mcg-120 mcg capsule 1 cap PO BEDTIME RF: 0 PMFSH Past Medical History Attestation statement: The following information was validated with the patient. Medical History Depression HTN (hypertension) Intestinal malabsorption following gastrectomy Marginal ulcer Metabolic syndrome Overweight with body mass index (BMI) 25.0-29.9 PCOS (polycystic ovarian syndrome) Sleep apnea Surgical History History of adenoidectomy History of esophagogastroduodenoscopy (EGD) Hx of gastric bypass Hx of tonsillectomy S/P gastric bypass S/P laparoscopic cholecystectomy Family History Family History Father No problems noted. Mother Alzheimer's dementia Social History Social History Alcohol intake: never Smoking Status: Former smoker Packs Per Day: 0.5 Cigarettes Per Day: 10.0 Second Hand Smoke Exposure: No Use of substances other than those prescribed or required for medical reasons: No Advance Directives: No Advance Directives Information Provided: No
[2021-01-14 10:55] LABS: SLIDE REVIEW VERIFIED
[2021-01-14 11:00] LABS: Lipase 6 U/L (8-78)
[2021-01-14 11:01] LABS: Alanine Aminotransferase 25 U/L (0-31); Albumin Level 3.4 g/dL (3.5-5.0); Alkaline Phosphatase 100 U/L (39-117); Anion Gap 11 (12-20); Aspartate Amino Transferase 18 U/L (5-31); Bilirubin Direct 0.3 mg/dL (0.0-0.5); Bilirubin Total 0.8 mg/dL (0.0-1.0); Blood Urea Nitrogen 11 mg/dL (9-16); Calcium 7.7 mg/dL (8.4-10.2); Carbon Dioxide 27 mmol/L (22-29); Chloride 101 mmol/L (96-108); Creatinine Clr Calc Pharmacy 116.5; Estimated Glomerular Filt Rate > 60; Glucose Random 108 mg/dL (60-115); Magnesium 1.5 mg/dL (1.6-2.6); Potassium 3.3 mmol/L (3.3-5.1); Sodium 136 mmol/L (135-145); Total Protein 5.3 g/dL (6.5-8.0)
[2021-01-14 11:06] LABS: HCG Quantitative < 2 mIU/mL
[2021-01-14 11:29] LABS: Influenza A PCR NEGATIVE (Negative); Influenza B PCR NEGATIVE (Negative); Resp Syncy Virus RNA Qual PCR NEGATIVE (Negative); SARS COV2 PCR INHOUSE NEGATIVE (Negative)
[2021-01-14 11:54] VITALS: BP 104/42; PULSE 67; RESP 17; TEMP 37.2; O2SAT 97
[2021-01-14] MEDS: Diatrizoate Meglumine, Sodium 30 ML SOLUTION PO (11:59)
[2021-01-14] MEDS: Magnesium Sulfate/H2O 2 GM/50 ML PIGGYBACK IV (12:00)
[2021-01-14 12:38] LABS: Lactic Acid 0.7 mmol/L (0.5-2.0)
[2021-01-14 14:09] VITALS: RESP 20
[2021-01-14] MEDS: Metoclopramide HCl 10 MG/2 ML VIAL IVPUSH (14:09)
[2021-01-14] MEDS: Morphine Sulfate 2 MG/ML CARTRIDGE 1 MG IVPUSH (14:09)
[2021-01-14 14:26] LABS: Glucose Urine UA NEG (NEG); Leukocyte Esterase Urine NEG (NEG); Nitrite Urine NEG (NEG); PH 6.5 (5.0-8.0); Specific Gravity - Urine <= 1.005 (1.005-1.025); Urine Blood NEG (NEG); Urine Ketones NEG (NEG); Urine Protein NEG (NEG-TRACE)
[2021-01-14 14:27] LABS: Appearance Urine CLEAR; Color Urine YELLOW
[2021-01-14 14:29] LABS: MANUAL DIFF FLAG NO
[2021-01-14 14:30] LABS: Basophils Absolute Auto 0.1 X10*3/uL (0.0-0.2); Basophils Percent Auto 0.5 % (0-2); Eosinophils Percent Auto 0.2 % (0-4); Hematocrit 36.4 % (37-47); Hemoglobin 12.1 g/dl (12.0-16.0); Imm Gran Abs Auto 0.03 X10*3/uL (0.00-0.03); Imm Gran Pct Auto 0.3 % (0.0-0.4); Lymphocytes Absolute Auto 1.2 X10*3/uL (1.2-4.9); Lymphocytes Percent Auto 10.6 % (20-40); Mean Corpuscular HGB Conc 33.2 g/dl (31.0-35.0); Mean Corpuscular Hemoglobin 30.9 pg (27.0-33.0); Mean Corpuscular Volume 93.1 fL (80-98); Mean Platelet Volume 10.2 fL (9.4-12.3); Monocytes Absolute Auto 0.9 X10*3/uL (0.1-1.2); Monocytes Percent Auto 7.9 % (2-11); Neutrophils Absolute Auto 9.2 X10*3/uL (2.0-8.3); Neutrophils Percent Auto 80.5 % (45-73); Platelet Count 194 X10*3/uL (160-400); Red Blood Count 3.91 X10*6/uL (4.20-5.50); Red Cell Distribution Width 12.2 % (11.0-16.0); White Blood Count 11.4 X10*3/uL (4.8-10.8)
[2021-01-14] MEDS: Piperacillin Sodium/Tazobactam 2.25 GM in 0.9 % Sodium Chloride 50 ML IV (14:41)
[2021-01-14 14:44] VITALS: BP 100/50; PULSE 63; RESP 14; O2SAT 97
[2021-01-14 14:59] LABS: Lactic Acid 0.6 mmol/L (0.5-2.0)
[2021-01-14 16:00] VITALS: BP 91/47; PULSE 60; RESP 15; TEMP 37.6; O2SAT 96
[2021-01-14] MEDS: Lactated Ringers 1,000 ML 125 ML IVCONT (18:01)
[2021-01-14 18:10] VITALS: BP 96/51; PULSE 65; RESP 16; O2SAT 98
[2021-01-14] MEDS: Pantoprazole Sodium 40 MG/10 ML VIAL IVPUSH (18:15)
--- NOTE | 2021-01-14 20:38 | P.HPGS_ITS ---
History of Present Illness History of Present Illness Date of Service: 01/14/21 Chief complaint: intussusception Narrative: Viviana Maravilla is a 40 year old female who is 8 mo s/p laparoscopic gastric bypass with Dr. Palmer May 2020. She resumed smoking cigarettes shortly after her surgery and developed a marginal ulcer that was confirmed on endoscopy 08/2020. She was treated as an outpatient and was on a liquid protein diet, pantoprazole, and carafate. Repeat endoscopy one month later 09/2020 showed the marginal ulcer had healed. PAtient has had uneventful follow ups since then and has stopped smoking for the past several months. For the past 4 days she felt unwell and thought she had food poisoning and felt unwell and cold. This morning at 12am she woke up suddenly with 10/10 lower abdominal pain that radiated to her back. The rest of the night the pain was constant but inte rmittent in severity, and she had over 10 instances of vomiting/dry heaving. Has had multiple loose stools, especially dring dry heaving incidences. Nothing to eat or drink since dinner the night before. Denies smoking. No new medications or changes to her medical history. Review of Systems Constitutional: Constitutional: Reports as per HPI, Reports chills and Denies fever(s) Cardiovascular: Cardiovascular: Denies chest pain and Denies dyspnea Respiratory: Respiratory: Denies dyspnea Gastrointestinal: Gastrointestinal: Reports as per HPI, Reports abdominal pain, Reports diarrhea, Reports loose stools, Reports nausea and Reports vomiting PMFSH Past Medical History Medical History Depression HTN (hypertension) Intestinal malabsorption following gastrectomy Marginal ulcer Metabolic syndrome Overweight with body mass index (BMI) 25.0-29.9 PCOS (polycystic ovarian syndrome) Sleep apnea Family History Family History Father No problems noted. Mother Alzheimer's dementia Surgical History Surgical History History of adenoidectomy History of esophagogastroduodenoscopy (EGD) Hx of gastric bypass Hx of tonsillectomy S/P gastric bypass S/P laparoscopic cholecystectomy Social History Social History Alcohol intake: never Smoking Status: Former smoker Packs Per Day: 0.5 Cigarettes Per Day: 10.0 Second Hand Smoke Exposure: No Use of substances other than those prescribed or required for medical reasons: No Advance Directives: No Advance Directives Information Provided: No Meds Allergies Allergy/AdvReac Type Severity Reaction Status Date / Time No Known Allergies Allergy Verified 01/14/21 08:47 [No Known Allergies*] Active Medications: Current Medications Generic Name Dose Route Start Last Admin Trade Name Fredenilson PRN Reason Stop Dose Admin Lactated Ringer's 1,000 mls @ 125 mls/hr 01/14/21 17:15 01/14/21 18:01 Lr IVCONT 125 mls/hr .Q8H BONI Administration Home Medications Medication Instructions Recorded Confirmed Last Taken Type aokkmsjw-tyhenhxc-xxmw 45 mg-folic 1 cap PO BEDTIME 08/12/20 01/14/21 01/13/21 History acid 800 mcg-vit K 120 mcg capsule calcium citrate 1,000 mg tablet 1,000 mg PO BEDTIME 10/28/20 01/14/21 01/13/21 History omeprazole 20 mg PO BEDTIME 01/14/21 01/14/21 01/13/21 History venlafaxine 1 tab PO BEDTIME 01/14/21 01/14/21 01/13/21 History Physical Exam Vital Signs: Vital Signs: Last Vital Signs Temp 99.6 F 01/14/21 16:00 Pulse 65 01/14/21 18:10 Resp 16 01/14/21 18:10 BP 96/51 L 01/14/21 18:10 Pulse Ox 98 01/14/21 18:10 Body Mass Index 22.8 Const: General: cooperative, comfortable, no acute distress, alert and awake Nutritional Appearance: average body habitus Orientation/consciousness: o riented to person, oriented to place and oriented to time Resp: Effort & Inspection: normal respiratory effort and symmetric chest movement Auscultation: clear to auscultation bilaterally Cardio: Rate: regular rate Rhythm: regular rhythm GI: Inspection: Yes normal to inspection and Yes obesity Palpation (GI): Soft to palpation, nontender, no guarding, not rigid and No Rebound tenderness present Auscultation: normal bowel sounds (LLQ) and Absent bowel sounds (RLQ) Neuro: General: oriented to person, oriented to place and oriented to time Extrem: Right lower extremity: no edema Left lower extremity: no edema Psych: Appearance: grossly normal Mental Status: mental status grossly normal Speech and movement: Normal speech and movement present Affect: normal affect Attitude: cooperative Thought process: Normal thought process present Thought content: Normal thought content present Insight: Good insight present (Psych) Judgement: Good judgement present (Psych) Results Results Labs: Short CBC 01/14/21 01/14/21 Range/Units 10:27 14:25 WBC 15.4 H 11.4 H (4.8-10.8) X10*3/uL Hgb 13.8 12.1 (12.0-16.0) g/dl Hct 41.3 36.4 L (37-47) % Plt Count 205 194 (160-400) X10*3/uL BMP 01/14/21 10:27 Sodium 136 Potassium 3.3 Chloride 101 Carbon Dioxide 27 BUN 11 Creatinine 0.66 Calcium 7.7 L D Liver Function 01/14/21 Range/Units 10:27 Total Bilirubin 0.8 (0.0-1.0) mg/dL Direct Bilirubin 0.3 (0.0-0.5) mg/dL AST 18 D (5-31) U/L ALT 25 (0-31) U/L Alkaline Phosphatase 100 (39-117) U/L Albumin 3.4 L (3.5-5.0) g/dL Urine 01/14/21 Range/Units 14:18 Urine Color YELLOW Urine Appearance CLEAR Urine pH 6.5 (5.0-8.0) Ur Specific [place] <= 1.005 (1.005-1.025) Urine Protein NEG (NEG-TRACE) MG/DL Urine Glucose (UA) NEG (NEG) MG/DL Abdomen CT scan report/results: report reviewed, image reviewed and other (reviewed with Dr. Garber in radiology) Assessment and Plan (1) S/P gastric bypass: Problem details: 05/2020, Dr. Palmer Status: Acute (2) History of ulceration: Status: Acute (3) Small bowel intussusception: Status: Acute (4) Partial obstruction of small intestine: Status: Acute (5) Abdominal pain: Status: Acute (6) Intestinal malabsorption following gastrectomy: Status: Acute 40 yo F who is 8 mo s/p LRYGB and 4 mo s/p resolution of marginal ulcer. CT abdomen demonstrates intussusception with partial SBO and possibly related intra-luminal mass/lesion, unrelated to LRYGB and distal to JJ anastamosis. Lactic acid normal, white count trending down, and patient clinically improved. Will admit NPO and recheck labs and CT scan with po and oral contrast in the morning. Results of imaging discussed with Dr. Garber, assessment and plan discussed with attending Dr. Taylor. All of the above communicated to the patient, who was in agreement with plan.
--- NOTE | 2021-01-14 23:07 | MHC.CM.PN ---
CM met with pt. Pending admission, holding in the ED. A&Ox3. Very pleasant and cooperative. Lives with children, eldest 18 years old, Rosey, who is also pt HCP ([phone]). HCP reviewed, completed and signed. Copies given. Uploaded into [employer] and [employer]. Pt requests that HCP/daughter, Rosey, be the primary contact. D/C plan is home without services. Pt states she has family/friends who can help her. Transportation home to be arranged by pt. CM to follow for d/c needs.
[2021-01-15] VITALS (7 sets, daily range): BP systolic 101–106; BP diastolic 52–61; PULSE 45–60; RESP 15–20; TEMP 36.6–37.3; O2SAT 94–100; BMI 24.3
[2021-01-15] MEDS: Lactated Ringers 1,000 ML 125 ML IVCONT ×3 (02:55→19:28)
[2021-01-15 06:12] LABS: MANUAL DIFF FLAG NO
[2021-01-15 06:17] LABS: Basophils Percent Auto 0.5 % (0-2); Eosinophils Absolute Auto 0.1 X10*3/uL (0.0-0.4); Eosinophils Percent Auto 1.5 % (0-4); Hematocrit 34.9 % (37-47); Hemoglobin 11.7 g/dl (12.0-16.0); Imm Gran Abs Auto 0.02 X10*3/uL (0.00-0.03); Imm Gran Pct Auto 0.3 % (0.0-0.4); Lymphocytes Absolute Auto 1.4 X10*3/uL (1.2-4.9); Lymphocytes Percent Auto 23.5 % (20-40); Mean Corpuscular HGB Conc 33.5 g/dl (31.0-35.0); Mean Corpuscular Hemoglobin 31.1 pg (27.0-33.0); Mean Corpuscular Volume 92.8 fL (80-98); Mean Platelet Volume 10.7 fL (9.4-12.3); Monocytes Absolute Auto 0.6 X10*3/uL (0.1-1.2); Monocytes Percent Auto 10.6 % (2-11); Neutrophils Absolute Auto 3.8 X10*3/uL (2.0-8.3); Neutrophils Percent Auto 63.6 % (45-73); Platelet Count 168 X10*3/uL (160-400); Red Blood Count 3.76 X10*6/uL (4.20-5.50); Red Cell Distribution Width 12.2 % (11.0-16.0)
[2021-01-15 06:36] LABS: Lactic Acid 0.6 mmol/L (0.5-2.0)
[2021-01-15 06:43] LABS: Alanine Aminotransferase 21 U/L (0-31); Albumin Level 2.8 g/dL (3.5-5.0); Alkaline Phosphatase 81 U/L (39-117); Anion Gap 10 (12-20); Aspartate Amino Transferase 18 U/L (5-31); Bilirubin Direct < 0.2 mg/dL (0.0-0.5); Bilirubin Total < 0.2 mg/dL (0.0-1.0); Blood Urea Nitrogen 9 mg/dL (9-16); Calcium 7.5 mg/dL (8.4-10.2); Carbon Dioxide 25 mmol/L (22-29); Chloride 106 mmol/L (96-108); Creatinine Clr Calc Pharmacy 126.1; Estimated Glomerular Filt Rate > 60; Glucose Random 72 mg/dL (60-115); Potassium 3.5 mmol/L (3.3-5.1); Sodium 137 mmol/L (135-145); Total Protein 4.4 g/dL (6.5-8.0)
[2021-01-15 08:52] LABS: Magnesium 1.9 mg/dL (1.6-2.6)
--- NOTE | 2021-01-15 10:04 | PM.PNGS ---
Subjective Subjective Date of Service: 01/15/21 Patient reports: no new complaints Interval history: Pt is HD #1 for small bowel intussecption distal to j-j anastomosis s/p GBP [address] yesterday questioned a mass or polyp at site of obstruction. PT states no pain, nausea or emesis overnight. She is very hungry. Soft brown stool x 1 this am is being sent for culture. Patient and RN both state it is very foul smelling and patient states this is normal for her since GBP. She is asking about effexor dose, states that she missed last night dose and is very sensitive to changes in mood if she misses a dose. Physical Exam Vital Signs: Vital Signs: Last Vital Signs Temp 98.7 F 01/15/21 07:45 Pulse 54 01/15/21 07:45 Resp 18 01/15/21 07:45 BP 101/59 L 01/15/21 07:45 Pulse Ox 97 01/15/21 07:45 Body Mass Index 24.3 Const: General: cooperative, healthy appearing, comfortable and well developed Nutritional Appearance: average body habitus Orientation/consciousness: patient oriented x3 GI: Inspection: Yes normal to inspection and No distended Palpation (GI): Soft to palpation, nontender, no guarding, not rigid, no hernias, no masses and No Rebound tenderness present Neuro: General: patient oriented x3 Extrem: General: Yes normal to inspection, Yes no pedal edema and Yes no calf tenderness Progress Note: A&P Assessment and plan (1) S/P gastric bypass: Problem details: 05/2020, Dr. Palmer Status: Acute (2) History of ulceration: Problem details: G-J anastomotic ulcer resolved September 2020 Status: Acute (3) Small bowel intussusception: Problem details: HD # 1 for small bowel intussusception distal to j-j anastomosis with possible small bowel mass at site of obstruction. Pt feels well today, no further pain or emesis and is hungry. Repeat CT scan to be done at noon today to evaluate bowel obstruction, labs have normalized other than low protein and albumin which will be addressed with nutrition changes after discharge. Case discussed with Dr Taylor, attending surgeon, and if no further bowel obstruction, patient will be given a trial of liquid diet and if tolerates will be discharged home today and will follow up in bariatric office with Dr Palmer. Status: Acute (4) Hypomagnesemia: Problem details: Resolved after replacement yesterday Status: Acute Fall Risk Details Current Medications: Current Medications Generic Name Dose Route Start Last Admin Trade Name Freq PRN Reason Stop Dose Admin Lactated Ringer's 1,000 mls @ 125 mls/hr 01/14/21 17:15 01/15/21 10:03 Lr IVCONT 125 mls/hr .Q8H BONI Administration Time Spent With Patient Time: Total time spent is greater than 50% in coordination of care (as documented) at patient's floor/unit and/or counseling patient: Time with patient: 25 - 35 minutes
[2021-01-15 11:57] LABS: Leukocytes Stool Qualitative NEGATIVE (NEGATIVE)
[2021-01-15] MEDS: Diatrizoate Meglumine, Sodium 30 ML SOLUTION PO (12:34)
[2021-01-15] MEDS: iohexoL 350 MG/ML 75 ML INFUS..BTL IV (12:35)
[2021-01-15] MEDS: Venlafaxine HCl ER 75 MG CAP.ER.24H PO (16:40)
[2021-01-15] MEDS: Acetaminophen 325 MG TABLET 650 MG PO (17:26)
--- NOTE | 2021-01-15 17:37 | MHC.PIE ---
P- Pt c/o COFFEY 02/21. Also states intermittent leg tingling and numbness with purple discoloration, worsening upon standing. Discoloration also visualized by this RN Karri- Ritika Palmer notified of patient concerns, Sam stockings and tylenol ordered and administered. E- +pedal pulses bilaterally, denies CP or SOB. Lungs clear throughout. Denies any pain to legs. Will continue to monitor
[2021-01-16] MEDS: Lactated Ringers 1,000 ML 125 ML IVCONT (02:36)
[2021-01-16 03:09] VITALS: BP 96/52; PULSE 52; RESP 18; TEMP 36.4; O2SAT 96
[2021-01-16 06:24] LABS: MANUAL DIFF FLAG NO
[2021-01-16 06:49] LABS: Basophils Percent Auto 0.2 % (0-2); Eosinophils Absolute Auto 0.1 X10*3/uL (0.0-0.4); Eosinophils Percent Auto 2.4 % (0-4); Hematocrit 35.7 % (37-47); Hemoglobin 11.8 g/dl (12.0-16.0); Imm Gran Abs Auto 0.02 X10*3/uL (0.00-0.03); Imm Gran Pct Auto 0.4 % (0.0-0.4); Lymphocytes Absolute Auto 1.7 X10*3/uL (1.2-4.9); Lymphocytes Percent Auto 35.5 % (20-40); Mean Corpuscular HGB Conc 33.1 g/dl (31.0-35.0); Mean Corpuscular Hemoglobin 31.1 pg (27.0-33.0); Mean Corpuscular Volume 93.9 fL (80-98); Mean Platelet Volume 10.9 fL (9.4-12.3); Monocytes Absolute Auto 0.5 X10*3/uL (0.1-1.2); Monocytes Percent Auto 10.5 % (2-11); Neutrophils Absolute Auto 2.4 X10*3/uL (2.0-8.3); Platelet Count 183 X10*3/uL (160-400); Red Cell Distribution Width 11.9 % (11.0-16.0); White Blood Count 4.7 X10*3/uL (4.8-10.8)
[2021-01-16 07:20] LABS: Alanine Aminotransferase 20 U/L (0-31); Albumin Level 2.8 g/dL (3.5-5.0); Alkaline Phosphatase 77 U/L (39-117); Anion Gap 14 (12-20); Aspartate Amino Transferase 17 U/L (5-31); Bilirubin Total 0.3 mg/dL (0.0-1.0); Blood Urea Nitrogen 10 mg/dL (9-16); Calcium 7.6 mg/dL (8.4-10.2); Carbon Dioxide 23 mmol/L (22-29); Chloride 108 mmol/L (96-108); Creatinine Clr Calc Pharmacy 130.4; Estimated Glomerular Filt Rate > 60; Glucose Random 56 mg/dL (60-115); Potassium 4.1 mmol/L (3.3-5.1); Sodium 141 mmol/L (135-145); Total Protein 4.4 g/dL (6.5-8.0)
--- NOTE | 2021-01-16 07:54 | PM.GICN ---
History of Present Illness Data of Consult Service Date: 01/16/21 Requesting physician: Jarrett Taylor Primary Care Provider: CHINO BRITO MD [facility] Reason for consult: small bowel lesion 40 year old female w/ hx of laparoscopic gastric bypass with Dr. Palmer May 2020 and marginal ulceration who I am seeing for assessment for abdominal pain and abnormal imaging. Patient admitted initially with 4 d hx of worsening 10/10 colicky lower abdomina pain prashant around umbilical area with radiaiton into the back. Associated with non bloody emesis and nausea. She has not had pain before but for many months she has had one week a month where she will have bouts of diarrhea with gas symptoms. she denies mouth ulcerations or perineal ulcers, peng have joint stiffness and pain usu in the mornings. Initial CT with bowel obstruction and intussusception of distal small bowel, possibility of lesion in that part of bowel. follow up CT with improvement but colonic edema noted. Today she feels back to normal, and is hungry, no longer has pain. Review of Systems Review of Systems: Constitutional : +Chills, No Weight loss, No Fever, No Night Sweats, No Fatigue, No Malaise ENT/Mouth: No ear pain, No sore throat, No Difficulty swallowing Cardiovascular : No Chest Pain, No SOB, No Dyspnea on Exertion, No Orthopnea, NoEdema, No Palpitations Respiratory : No Cough, No Sputum, No Wheezing, No Dyspnea Gastrointestinal : + Nausea, + Vomiting, + lower abdominal pain, + Diarrhea, No blood streaked emesis, No coffee-ground emesis, No gross hematemesis, No blood streak stool, No gross hematochezia, No Melena Genitourinary : No irregular bleeding, No Dysuria, No Urinary Frequency, No Hematuria,No Urinary Incontinence, No Urgency, No Flank Pain Musculoskeletal : No joint pain, No Myalgias, No Joint Swelling Skin : No Skin Lesions, No rash Neuro : No Weakness, No Numbness, No Paresthesias, No Loss of Consciousness, NoDizziness, No Headache Psych : No Social Issues, Heme/Lymph: No Bruising, No Bleeding,No Lymphadenopathy Endocrine : No Polyuria, No Polydipsia, No Temperature Intolerance Yes all other systems are reviewed and are negative Constitutional: Constitutional: Reports as per HPI, Reports chills and Denies fever(s) Cardiovascular: Cardiovascular: Denies chest pain and Denies dyspnea Respiratory: Respiratory: Denies dyspnea Gastrointestinal: Gastrointestinal: Reports as per HPI, Reports abdominal pain, Reports diarrhea, Reports loose stools, Reports nausea and Reports vomiting PMFSH Past Medical History Medical History Depression HTN (hypertension) Intestinal malabsorption following gastrectomy Marginal ulcer Metabolic syndrome Overweight with body mass index (BMI) 25.0-29.9 PCOS (polycystic ovarian syndrome) Sleep apnea Family History Family History Father No problems noted. Mother Alzheimer's dementia Surgical History Surgical History History of adenoidectomy History of esophagogastroduodenoscopy (EGD) Hx of gastric bypass Hx of tonsillectomy S/P gastric bypass S/P laparoscopic cholecystectomy Social History Social History Household Members: Family Housing: House Alcohol intake: never Smoking Status: Former smoker Packs Per Day: 0.5 Cigarettes Per Day: 10.0 Second Hand Smoke Exposure: No service: No Current occupational status: unemployed Meds Allergies Allergy/AdvReac Type Severity Reaction Status Date / Time No Known Allergies Allergy Verified 01/14/21 08:47 [No Known Allergies*] Active Medications: Current Medications Generic Name Dose Route Start Last Admin Trade Name Freq PRN Reason Stop Dose Admin Acetaminophen 650 mg 01/15/21 17:04 01/15/21 17:26 Acetaminophen 325 Mg Tablet PO 650 mg Q6H PRN Administration Headache Lactated Ringer's 1,000 mls @ 125 mls/hr 01/14/21 17:15 01/16/21 02:36 Lr IVCONT 125 mls/hr .Q8H BONI Administration Venlafaxine HCl 75 mg 01/15/21 15:00 01/15/21 16:40 Venlafaxine Hcl Er 75 Mg Cap.Er.24h PO 75 mg DAILY BONI Administration Home Medications Medication Instructions Recorded Confirmed Last Taken Type [id number] 45 mg-folic 1 cap PO BEDTIME 08/12/20 01/14/21 01/13/21 History acid 800 mcg-vit K 120 mcg capsule calcium citrate 1,000 mg tablet 1,000 mg PO BEDTIME 10/28/20 01/14/21 01/13/21 History omeprazole 20 mg PO BEDTIME 01/14/21 01/14/21 01/13/21 History venlafaxine 1 tab PO BEDTIME 01/14/21 01/14/21 01/13/21 History Physical Exam Vital Signs: Vital Signs: Last Vital Signs Temp 97.5 F 01/16/21 03:09 Pulse 52 01/16/21 03:09 Resp 18 01/16/21 03:09 BP 96/52 L 01/16/21 03:09 Pulse Ox 96 01/16/21 03:09 Body Mass Index 24.3 Const: General: cooperative, healthy appearing, comfortable, no acute distress, well developed, alert and awake Nutritional Appearance: average body habitus Orientation/consciousness: oriented to person, oriented to place, oriented to time and patient oriented x3 Neck: Neck: Yes normal visual inspection, Yes no lymphadenopathy and No submandibular swelling Resp: Effort & Inspection: normal respiratory effort and symmetric chest movement Auscultation: clear to auscultation bilaterally Cardio: Rate: regular rate Rhythm: regular rhythm GI: Inspection: Yes normal to inspection and No distended Palpation (GI): Soft to palpation, nontender, no guarding, not rigid, no hernias, no masses and No Rebound tenderness present Auscultation: normal bowel sounds (LLQ) and Absent bowel sounds (RLQ) Neuro: General: oriented to person, oriented to place, oriented to time and patient oriented x3 Extrem: General: Yes normal to inspection, Yes no pedal edema and Yes no calf tenderness Right lower extremity: no edema Left lower extremity: no edema Psych: Appearance: grossly normal Mental Status: mental status grossly normal Speech and movement: Normal speech and movement present Affect: normal affect Attitude: cooperative Thought process: Normal thought process present Thought content: Normal thought content present Insight: Good insight present (Psych) Judgement: Good judgement present (Psych) Results Labs CBC & Chem 7: 01/16/21 05:47 01/16/21 05:47 Labs: Short CBC 01/16/21 Range/Units 05:47 WBC 4.7 L (4.8-10.8) X10*3/uL Hgb 11.8 L (12.0-16.0) g/dl Hct 35.7 L (37-47) % Plt Count 183 (160-400) X10*3/uL BMP 01/16/21 05:47 Sodium 141 Potassium 4.1 Chloride 108 Carbon Dioxide 23 BUN 10 Creatinine 0.59 Calcium 7.6 L Liver Function 01/16/21 Range/Units 05:47 Total Bilirubin 0.3 (0.0-1.0) mg/dL AST 17 (5-31) U/L ALT 20 (0-31) U/L Alkaline Phosphatase 77 (39-117) U/L Albumin 2.8 L (3.5-5.0) g/dL Microbiology Microbiology Results: Microbiology 01/14/21 12:26 Blood - Venous Blood Culture - Preliminary No growth after 24 hours. 01/14/21 12:12 Blood - Venous Blood Culture - Preliminary Assessment and Plan (1) Small bowel intussusception: Status: Acute (2) Colonic edema: Status: Acute 1/ Small bowel intusussception wth colonic edema and possible chronic changes in the right colon, ddx: crohns disease, small bowel mass or polyp e.g hamartoma, carcinoid, adenoma. The intususscetion occurred distal to J-J anastomosis per radiology report so uncertain that enteropexy would be helpful if this recurs PLAN: 1/ fecal calprotectin 2/ o/p sham capsule if no retention then proceed with actual capsule endoscopy thereafter, based on this might consider push enteroscopy or balloon enteroscopy along with colonoscopy
[2021-01-16 08:00] VITALS: BP 105/59; PULSE 50; RESP 18; TEMP 37.2; O2SAT 99
[2021-01-16] MEDS: Venlafaxine HCl ER 75 MG CAP.ER.24H PO (08:58)
--- NOTE | 2021-01-16 10:44 | PM.PNGS ---
Subjective Subjective Date of Service: 01/16/21 Patient reports: no new complaints, feels better and tolerating liquids well Interval history: HD #2 for SB intusssuscuption s/p GBP May 2020. CT abd yesterday revealed no further obstruction and patient was started on bariatric phase 3 diet. Which she is tolerating well. CT also revealed colonic edema and first set of blood cultures were positive for gm+ cocci - for this reason GI consult was ordered. Pt states no further nausea, emesis or abd pain. She has had one more episode of soft stool yesterday. Physical Exam Vital Signs: Vital Signs: Last Vital Signs Temp 98.9 F 01/16/21 08:00 Pulse 50 01/16/21 08:00 Resp 18 01/16/21 08:00 BP 105/59 L 01/16/21 08:00 Pulse Ox 99 01/16/21 08:00 Body Mass Index 24.3 Const: General: healthy appearing, comfortable and well developed Nutritional Appearance: average body habitus GI: Palpation (GI): Soft to palpation, nontender, no guarding, not rigid, no hernias and no masses Progress Note: A&P Assessment and plan (1) Small bowel intussusception: Problem details: HD # 2 for small bowel intussusception distal to j-j anastomosis with possible small bowel mass at site of obstruction. Pt feels well today, no further pain or emesis, she is tolerating her bariatric phase 3 diet of protein shakes. Repeat CT revealed no further obstruction, but did show SB and colonic edema. SB edema can be explained by previous obstruction. Blood cultures - one bottle negative, one bottle with staph aureus. This seems to be a skin contaminate (stool without leukocytes) and will be considered a negative result. All aspects of case discussed with Dr Taylor, attending surgeon. Patient will will discharged home today. Status: Acute (2) S/P gastric bypass: Problem details: 05/2020, Dr. Palmer Pt has EGD appt scheduled with Dr Palmer on January 19 and office appt on January 21. She will keep these appointments and continue bariatric phase 3 diet only - 3 shakes per day, 70 - 80 grams of protein per day until re evaluated by Dr Palmer. Status: Acute (3) Colonic edema: Problem details: Follow up with Dr Fortino Raman for capsule endoscopy to rule out SB mass or Crohns disease. Status: Acute Fall Risk Details Current Medications: Current Medications Generic Name Dose Route Start Last Admin Trade Name Freq PRN Reason Stop Dose Admin Acetaminophen 650 mg 01/15/21 17:04 01/15/21 17:26 Acetaminophen 325 Mg Tablet PO 650 mg Q6H PRN Administration Headache Dextrose/Lactated Ringer's 1,000 mls @ 100 mls/hr 01/16/21 09:45 D5lr IVCONT .Q10H BONI Venlafaxine HCl 75 mg 01/15/21 15:00 01/16/21 08:58 Venlafaxine Hcl Er 75 Mg Cap.Er.24h PO 75 mg DAILY BONI Administration Time Spent With Patient Time: Total time spent is greater than 50% in coordination of care (as documented) at patient's floor/unit and/or counseling patient: Time with patient: 25 - 35 minutes
--- NOTE | 2021-01-16 11:07 | PM.DS ---
DS: Providers Provider Date of Service: 01/16/21 Date of admission: 01/14/21 20:32 Primary care physician: CHINO ERWIN MD Consults: 01/15/21 14:57 Consult to Gastroenterology Routine Consulting Provider: Colton Rodriguez Reason for consultation: s/p resolved sb intusscuption, colonic edema and gm + cocci in blood. Has provider been notified: No DS: Diagnosis Discharge Diagnosis (1) Small bowel intussusception: Status: Acute Problem details: Pt is 8 months s/p GBP with Dr Palmer. She was treated for anastomotic ulcer Aug - Sep 2020 after she began smoking tobacco after GBP. Repeat EGD revealed healed ulcer. Pt was admitted on01/14/21 for 4 d hx of intermittent abd pain, foul smelling loose stool and repeated bouts of emesis. CT on admission revealed SB intussuscuption distal to j-j anastamosis and possible SB mass. REpeat CT done 01/15 confirmed resolved obstruction but colonic edema was noted. Pt began bariatric phase 3 diet and tolerated wit well. She was seen by Dr Fortino Raman, GI, who will follow up with her after discharge with capsule endoscopy to rule out SB mass and/or Crohn's disease. Pt was discharged home on HD # 2 feeling well, without pain, nausea emesis or diarrhea. Blood cultures - one bottle negative, one bottle with staph aureus. This seems to be a skin contaminate (stool without leukocytes) and will be considered a negative result. All aspects of case discussed with Dr Taylor, attending surgeon. Patient will will discharged home today. (2) S/P gastric bypass: Status: Acute Problem details: 05/2020, Dr. Palmer Pt has EGD appt scheduled with Dr Palmer on January 19 and office appt on January 21. She will keep these appointments and continue bariatric phase 3 diet only - 3 shakes per day, 70 - 80 grams of protein per day until re evaluated by Dr Palmer. (3) Colonic edema: Status: Acute Problem details: Follow up with Dr Fortino Raman for capsule endoscopy to rule out SB mass or Crohns disease. DS: Medications Discharge Medications Home Medications: Home Medications Medication Instructions Recorded Confirmed [id number]-wvionozj-[id number] 45 mg-folic 1 cap PO BEDTIME 08/12/20 01/14/21 acid 800 mcg-vit K 120 mcg capsule calcium citrate 1,000 mg tablet 1,000 mg PO BEDTIME 10/28/20 01/14/21 omeprazole 20 mg PO BEDTIME 01/14/21 01/14/21 venlafaxine 1 tab PO BEDTIME 01/14/21 01/14/21 DS: Summary Time Spent with Patient Time attestation: Total time spent providing and/or coordinating discharge services: 15 Discharge coordination time: Greater than 30 minutes Physical Exam Vital Signs: Vital Signs: Last Vital Signs Temp 98.9 F 01/16/21 08:00 Pulse 50 01/16/21 08:00 Resp 18 01/16/21 08:00 BP 105/59 L 01/16/21 08:00 Pulse Ox 99 01/16/21 08:00 Body Mass Index 24.3 DS: Data Data Completed and Pending Labs on day of discharge: Laboratory Results - last 24 hr 01/15/21 01/16/21 01/16/21 09:47 05:47 05:47 WBC 4.7 L RBC 3.80 L Hgb 11.8 L Hct 35.7 L MCV 93.9 MCH 31.1 MCHC 33.1 RDW 11.9 Plt Count 183 MPV 10.9 Immature Gran % (Auto) 0.4 Neut % (Auto) 51.0 Lymph % (Auto) 35.5 Centre % (Auto) 10.5 Eos % (Auto) 2.4 Baso % (Auto) 0.2 Lymph # (Auto) 1.7 Centre # (Auto) 0.5 Eos # (Auto) 0.1 Baso # (Auto) 0.0 Abs Immat Gran (auto) 0.02 Absolute Neuts (auto) 2.4 Absolute Nucleated RBC 0.000 Nucleated RBC % (auto) 0.0 Sodium 141 Potassium 4.1 Chloride 108 Carbon Dioxide 23 Anion Gap 14 BUN 10 Creatinine 0.59 Estim Creat Clear Calc 130.4 Estimated GFR > 60 Random Glucose 56 L* Calcium 7.6 L Total Bilirubin 0.3 AST 17 ALT 20 Alkaline Phosphatase 77 Total Protein 4.4 L Albumin 2.8 L Stool Leukocytes, Qual NEGATIVE Preliminary micro results at discharge 01/15/21 09:47 Stool Culture - Preliminary Stool Normal so far. 01/14/21 12:26 Blood Culture - Preliminary Blood - Venous No growth after 24 hours. Discharge Plan Discharge Anticipated Discharge Date/Time: 01/16/21 12:02 Patient Disposition: Home, Self-Care Referrals: Chino Erwin MD [Primary Care Provider] - Discharge Medications: Continued venlafaxine 75 mg tablet extended release 24hr 1 tab PO BEDTIME RF: 0 omeprazole 20 mg capsule,delayed release(DR/EC) 20 mg PO BEDTIME RF: 0 calcium citrate 1,000 mg tablet 1,000 mg PO BEDTIME RF: 0 Bariatric Multivitamins 45 mg iron- 800 mcg-120 mcg capsule 1 cap PO BEDTIME RF: 0 Discharge Orders: Discharge Order (Routine); Ordered 01/16/21 Ordered By: Ritika Palmer Diet: other Activity on Discharge: As tolerated Stand Alone Forms: Patient Portal Discharge page Care Plan Goals: proper nutritions/p GBP Health Concerns: hyoalbunemia, colonic edema, possible mass on uterus Plan of Treatment: Pt to keep appt with Dr Palmer for January 19 and January 21. Bariatric liquid diet of 70 - 80 grams of protein per day until seen by Dr Palmer. Will need to arrange for pelvic ultrasound to evaluate pelvic mass seen on CT 01/15. Also Follow up with Dr Fortino Raman for colonic edema
[2021-01-16] MEDS: Dextrose 5 % and Lactated Ring 1,000 ML 100 ML IVCONT (12:04)
--- NOTE | 2021-01-16 12:55 | MHC.CM.PN ---
PT CLEARED TO DC HOME TODAY WITH NO SERVICES. PT WILL SELF ARRANGE TRANSPORTATION.
== END 2021-01-16 13:10 | disposition home or self-care (01) | DRG 247 ==
LOC: HO.ED 15:31 → HO.EDOVER 20:42 → HO.IMC 01-15 01:38
PROVIDERS: Nurse Practitioner Primary Care; Physician Assistant; Physician Assistant Medical; Admitting Provider Surgery; Emergency Provider Emergency Medicine; PCP Family Medicine; Visit Provider Surgery
DX: K56.1 Intussusception (principal); E83.42 Hypomagnesemia; K90.9 Intestinal malabsorption, unspecified; F17.210 Nicotine dependence, cigarettes, uncomplicated; Z20.822 Contact with and (suspected) exposure to COVID-19; Z71.6 Tobacco abuse counseling; Z98.84 Bariatric surgery status; Z79.899 Other long term (current) drug therapy
CPT/HCPCS: 0241U; 36415; 74177; 80048; 80053; 80076; 81003; 83605; 83690; 83735; 84702; 85025; 85610; 85730; 87040; 87045; 87046; 87147; 87205; 89055; 96365; 96375; 99212; 99284; 99291; J2270; J2405; J2543; J2765; J3475; Q9967

== ENCOUNTER 2021-01-18 11:22 | Outpatient (REF) | payer OTHER, SELFPAY ==
[2021-01-23 22:11] LABS: Calprotectin, Fecal 275 mcg/g
== END 2021-01-18 11:23 | disposition home or self-care (01) ==
LOC: HO.LNP 11:22
PROVIDERS: Visit Provider Internal Medicine Gastroenterology
DX: R10.9 Unspecified abdominal pain (principal)
CPT/HCPCS: 83993

== ENCOUNTER 2021-01-19 | Outpatient (REF) | payer OTHER, SELFPAY ==
--- NOTE | ~2021-01-19 | XR_ITS ---
EXAMINATION: XR ABDOMEN KUB CLINICAL INDICATION: Intussusception. COMPARISON: 01/15/2021 CT TECHNIQUE: AP view of the abdomen. FINDINGS: There is a nonobstructive bowel gas pattern. No dilated loops of bowel. Gas and stool in the colon. Left upper quadrant surgical clips. The lung bases are clear. No acute osseous abnormality. Likely contrast in the appendix. XR/XR KUB IMPRESSION: Normal bowel gas pattern.
== END 2021-01-19 00:01 | disposition home or self-care (01) ==
LOC: HO.XRAY
PROVIDERS: PCP Family Medicine; Visit Provider Internal Medicine Gastroenterology
DX: K56.1 Intussusception (principal); K63.89 Other specified diseases of intestine
CPT/HCPCS: 74018

== ENCOUNTER → 2021-01-21 08:10 | Outpatient (BNVA) | payer OTHER, SELFPAY | PROVIDERS: PCP Family Medicine; Visit Provider Physician Assistant ==

== ENCOUNTER → 2021-02-24 08:42 | Outpatient (BNVA) | payer OTHER, SELFPAY | PROVIDERS: PCP Family Medicine; Visit Provider Internal Medicine Gastroenterology | DX: K52.9 Noninfective gastroenteritis and colitis, unspecified (principal) | CPT/HCPCS: 91110 ==

== ENCOUNTER → 2021-03-01 12:48 | Outpatient (BNVA) | payer OTHER, SELFPAY | PROVIDERS: PCP Family Medicine; Visit Provider Physician Assistant ==

== ENCOUNTER → 2021-03-04 11:43 | Outpatient (BNVA) | payer OTHER, SELFPAY | PROVIDERS: PCP Family Medicine; Visit Provider Internal Medicine Gastroenterology | DX: K56.1 Intussusception (principal); Z98.84 Bariatric surgery status | CPT/HCPCS: 99212 ==

== ENCOUNTER 2021-03-28 13:43 | Outpatient (REF) | payer OTHER, SELFPAY ==
--- NOTE | ~2021-03-28 | CT_ITS ---
EXAMINATION: CT ENTEROGRAPHY ABDOMEN AND PELVIS WITH CONTRAST CLINICAL INFORMATION: Periumbilical pain COMPARISON: Previous CT of the abdomen and pelvis January 2021 TECHNIQUE: Study performed with oral VoLumen (1350 mL) and 480 mL of water to distend the abdomen. The patient was injected with 85 mL Omnipaque 350 intravenous contrast which was administered without adverse effect. Coronal and sagittal reformatted images were obtained at the technologist's workstation. This CT examination was performed using dose optimization techniques as appropriate, variously including the following: *Automated exposure control *Adjustment of mA and/or kV according to patient size (this includes techniques or standardized protocols for targeted exams where dose is matched to indication/reason for exam; i.e. extremities or head) *Use of iterative reconstruction technique DLP: 327 mGy-cm FINDINGS: GASTROINTESTINAL FINDINGS: Stomach: There are post operative changes from gastric bypass. Stomach is otherwise unremarkable. Small intestine: Satisfactorily distended. Postoperative changes from gastric bypass. No wall thickening, dilatation or stricture is seen. No intussusception or small bowel mass is seen. Large intestine: Well-distended and normal in appearance. No perirectal changes demonstrated. The appendix is normal. Additional findings: No abnormal enhancement of the vasa recta or significant mesenteric or retroperitoneal lymphadenopathy is seen. No abdominal abscess or fistulous tract demonstrated. ABDOMINAL AND PELVIC CT FINDINGS: Liver, gallbladder, biliary tract: The liver is normal appearing. There is no biliary duct dilatation. The gallbladder is not well seen and may be absent. Pancreas: Normal Spleen: Normal Adrenal glands and kidneys: Normal Ureters and bladder: Normal No hernia seen. There is a vaginal cuff. There is new low-attenuation seen centrally in the uterus. This is probably related to the patient's menstrual cycle. Uterus and adnexa otherwise appear unremarkable. Lymphovascular structures: Normal Bones: Normal Lung bases: Normal CT/CT enterography IMPRESSION: Postoperative changes from gastric bypass. No evidence of intussusception, obstruction or small bowel lesion.
[2021-03-28] MEDS: Sorbitol/Mannit/Xanth Imaging 500 ML LIQUID 1500 ML PO (15:18)
[2021-03-28] MEDS: iohexoL 350 MG/ML 100 ML INFUS..BTL IV (15:19)
[2021-03-28 15:59] LABS: Alanine Aminotransferase 62 U/L (0-31); Albumin Level 3.8 g/dL (3.5-5.0); Alkaline Phosphatase 144 U/L (39-117); Anion Gap 11 (12-20); Aspartate Amino Transferase 42 U/L (5-31); Bilirubin Total 0.4 mg/dL (0.0-1.0); Blood Urea Nitrogen 9 mg/dL (9-16); Calcium 8.6 mg/dL (8.4-10.2); Carbon Dioxide 27 mmol/L (22-29); Chloride 104 mmol/L (96-108); Estimated Glomerular Filt Rate > 60; Glucose Fasting 82 mg/dL (60-99); Potassium 4.4 mmol/L (3.3-5.1); Sodium 138 mmol/L (135-145); Total Protein 5.8 g/dL (6.5-8.0)
[2021-03-28 16:19] LABS: Vitamin D 25-OH Total 45.1 ng/mL (>30)
[2021-03-28 16:32] LABS: Folate 17.8 ng/mL (> or = 4.0); Vitamin B12 984 pg/mL (200-900)
[2021-03-30 23:42] LABS: Zinc 60 mcg/dL (60-130)
[2021-04-01 00:47] LABS: Vitamin A 34 mcg/dL (38-98)
[2021-04-02 13:41] LABS: Vitamin B1 24 nmol/L (8-30)
== END 2021-03-28 13:44 | disposition home or self-care (01) ==
LOC: HO.US 13:43
PROVIDERS: Absent Provider Physician Assistant; PCP Family Medicine; Visit Provider Internal Medicine Gastroenterology
DX: R10.33 Periumbilical pain (principal); K91.2 Postsurgical malabsorption, not elsewhere classified; Z90.3 Acquired absence of stomach [part of]; Z98.84 Bariatric surgery status
CPT/HCPCS: 36415; 74177; 80053; 82306; 82607; 82746; 84425; 84590; 84630; Q9967

== ENCOUNTER 2021-05-24 09:40 | Outpatient (REF) | payer OTHER, SELFPAY ==
[2021-05-24 10:22] LABS: MANUAL DIFF FLAG NO
[2021-05-24 10:25] LABS: Basophils Percent Auto 0.7 % (0-2); Eosinophils Absolute Auto 0.1 X10*3/uL (0.0-0.4); Eosinophils Percent Auto 2.4 % (0-4); Hematocrit 42.3 % (37-47); Hemoglobin 14.1 g/dl (12.0-16.0); Imm Gran Abs Auto 0.02 X10*3/uL (0.00-0.03); Imm Gran Pct Auto 0.3 % (0.0-0.4); Lymphocytes Absolute Auto 1.9 X10*3/uL (1.2-4.9); Lymphocytes Percent Auto 32.8 % (20-40); Mean Corpuscular HGB Conc 33.3 g/dl (31.0-35.0); Mean Corpuscular Hemoglobin 31.6 pg (27.0-33.0); Mean Corpuscular Volume 94.8 fL (80-98); Mean Platelet Volume 10.6 fL (9.4-12.3); Monocytes Absolute Auto 0.5 X10*3/uL (0.1-1.2); Neutrophils Absolute Auto 3.3 X10*3/uL (2.0-8.3); Neutrophils Percent Auto 55.8 % (45-73); Platelet Count 238 X10*3/uL (160-400); Red Blood Count 4.46 X10*6/uL (4.20-5.50); Red Cell Distribution Width 12.2 % (11.0-16.0); White Blood Count 5.9 X10*3/uL (4.8-10.8)
[2021-05-24 10:34] LABS: Estimated Average Glucose 94 mg/dL; Hemoglobin A1c % 4.9 %
[2021-05-24 10:59] LABS: Alanine Aminotransferase 56 U/L (0-31); Albumin Level 3.8 g/dL (3.5-5.0); Alkaline Phosphatase 116 U/L (39-117); Anion Gap 9 (12-20); Aspartate Amino Transferase 33 U/L (5-31); Bilirubin Total 0.3 mg/dL (0.0-1.0); Blood Urea Nitrogen 8 mg/dL (9-16); C Reactive Protein 0.02 mg/dL (< or = 0.50); Calcium 8.8 mg/dL (8.4-10.2); Carbon Dioxide 29 mmol/L (22-29); Chloride 108 mmol/L (96-108); Cholesterol 106 mg/dL; Estimated Glomerular Filt Rate > 60; Gamma Glutamyl Transpeptidase 10 U/L (7-33); Glucose Random 81 mg/dL (60-115); HDL Cholesterol 32 mg/dL; Iron 41 mcg/dL (30-160); LDL Cholesterol Calculated 64 mg/dl; Percent Iron Saturation 12 % (15-50); Potassium 4.2 mmol/L (3.3-5.1); Sodium 142 mmol/L (135-145); Total Iron Binding Capacity 342 mcg/dL (228-428); Total Protein 5.9 g/dL (6.5-8.0); Triglycerides 50 mg/dL; Unsaturated Iron Binding 301 ug/dL
[2021-05-24 11:04] LABS: Vitamin D 25-OH Total 42.6 ng/mL (>30)
[2021-05-24 11:05] LABS: Ferritin 10 ng/mL (10-122); Thyroid Stimulating Hormone 1.83 uIU/mL (0.32-4.0)
[2021-05-24 11:06] LABS: HBS Num1 1.42 mIU/mL (0-7.99); ~Hepatitis B Surface Antibody NONREACTIVE (Nonreactive)
[2021-05-24 11:13] LABS: Vitamin B12 1357 pg/mL (200-900)
[2021-05-24 11:16] LABS: HBc Num1 0.04 S/CO (0.00-0.79); HBsAGNum1 0.19 S/CO (0.00-0.99); Hepatitis B Core Antibody Nonreactive (Nonreactive); Hepatitis B Surface Antigen Negative (Negative); ~HepC Num1 0.37 S/CO (0.00-0.79); ~Hepatitis C Antibody Nonreactive (Nonreactive)
[2021-05-25 08:08] LABS: Hepatitis A Antibody IgM 0.17 Index (0-0.79); ~Hepatitis A Antibody IgM Nonreactive (Nonreactive)
[2021-05-26 11:06] LABS: Transglutaminase Ab IgG 1 U/mL; Transglutaminase IgA 1 U/mL
[2021-05-26 11:31] LABS: Gliadin Deamidated IgA Ab 2 Units; Gliadin Deamidated IgG Ab 1 Units; Immunoglobulin G 732 mg/dL (600-1640)
[2021-05-26 11:51] LABS: Alpha 1 Anti-trypsin 161 mg/dL (83-199); Ceruloplasmin 27 mg/dL (18-53)
[2021-05-26 23:06] LABS: Anti Nuclear Antibody Pattern Nuclear, Homogeneous; Anti Nuclear Antibody Screen POSITIVE (NEGATIVE); Anti Nuclear Antibody Titer 1:40 titer
[2021-05-27 11:31] LABS: Smooth Muscle Antibody <20 U (<20)
[2021-05-27 16:02] LABS: Mitochondrial Antibodies NEGATIVE (NEGATIVE)
[2021-05-28 05:17] LABS: Zinc 82 mcg/dL (60-130)
[2021-05-28 10:22] LABS: Vitamin B1 28 nmol/L (8-30)
[2021-05-29 08:17] LABS: Aldolase 4.9 U/L (<=8.1)
[2021-05-30 05:02] LABS: Vitamin A 33 mcg/dL (38-98)
[2021-06-03 01:16] LABS: Soluble Liver Ag Autoantibody <20.1 U (0.0-20.0)
== END 2021-05-24 09:41 | disposition home or self-care (01) ==
LOC: HO.LAB 09:40
PROVIDERS: Absent Provider Surgery; PCP Family Medicine; Visit Provider Internal Medicine Gastroenterology
DX: Z01.818 Encounter for other preprocedural examination (principal); R94.5 Abnormal results of liver function studies; K75.81 Nonalcoholic steatohepatitis (NASH); K52.839 Microscopic colitis, unspecified; G89.29 Other chronic pain; R10.33 Periumbilical pain; R79.82 Elevated C-reactive protein (CRP); K91.2 Postsurgical malabsorption, not elsewhere classified; Z98.84 Bariatric surgery status; Z90.3 Acquired absence of stomach [part of]
CPT/HCPCS: 36415; 80053; 80061; 82085; 82103; 82306; 82390; 82550; 82607; 82728; 82784; 82977; 83036; 83516; 83520; 83540; 84425; 84443; 84590; 84630; 85025; 86038; 86039; 86140; 86255; 86256; 86704; 86706; 86709; 86803; 87340; 99212

== ENCOUNTER 2021-09-14 09:58 | Outpatient (REF) | payer OTHER, SELFPAY ==
[2021-09-14 11:08] LABS: Basophils Percent Auto 0.4 % (0-2); Eosinophils Absolute Auto 0.1 X10*3/uL (0.0-0.4); Eosinophils Percent Auto 0.6 % (0-4); Hematocrit 41.7 % (37.0-47.0); Hemoglobin 13.9 g/dl (12.0-16.0); Imm Gran Abs Auto 0.04 X10*3/uL (0.00-0.03); Imm Gran Pct Auto 0.5 % (0.0-0.4); Lymphocytes Absolute Auto 2.2 X10*3/uL (1.2-4.9); Lymphocytes Percent Auto 27.9 % (20-40); MANUAL DIFF FLAG NO; Mean Corpuscular HGB Conc 33.3 g/dl (31.0-35.0); Mean Corpuscular Hemoglobin 31.2 pg (27.0-33.0); Mean Corpuscular Volume 93.5 fL (80.0-98.0); Mean Platelet Volume 9.3 fL (9.4-12.3); Monocytes Absolute Auto 0.6 X10*3/uL (0.1-1.2); Neutrophils Percent Auto 62.6 % (45-73); Platelet Count 327 X10*3/uL (160-400); Red Blood Count 4.46 X10*6/uL (4.20-5.50); Red Cell Distribution Width 12.8 % (11.0-16.0)
[2021-09-14 11:40] LABS: Estimated Average Glucose 94 mg/dL; Hemoglobin A1c % 4.9 %
[2021-09-14 12:06] LABS: Alanine Aminotransferase 24 U/L (0-31); Albumin Level 3.5 g/dL (3.5-5.0); Alkaline Phosphatase 110 U/L (39-117); Anion Gap 13 (12-20); Aspartate Amino Transferase 20 U/L (5-31); Bilirubin Direct 0.3 mg/dL (0.0-0.5); Bilirubin Total 0.6 mg/dL (0.0-1.0); Blood Urea Nitrogen 8 mg/dL (9-16); C Reactive Protein 0.34 mg/dL (< or = 0.50); Calcium 8.9 mg/dL (8.4-10.2); Carbon Dioxide 25 mmol/L (22-29); Chloride 105 mmol/L (96-108); Estimated Glomerular Filt Rate > 60; Glucose Fasting 83 mg/dL (60-99); Iron 82 mcg/dL (30-160); Percent Iron Saturation 28 % (15-50); Potassium 4.3 mmol/L (3.3-5.1); Sodium 139 mmol/L (135-145); Total Iron Binding Capacity 293 mcg/dL (228-428); Unsaturated Iron Binding 211 ug/dL
[2021-09-14 12:27] LABS: Ferritin 39 ng/mL (10-122); Folate 18.6 ng/mL (> or = 4.0); TSH reflex Free T4 1.18 uIU/mL (0.32-4.0); Vitamin B12 1403 pg/mL (200-900); Vitamin D 25-OH Total 33.2 ng/mL (>30)
[2021-09-19 00:57] LABS: Zinc 76 mcg/dL (60-130)
[2021-09-19 08:51] LABS: Vitamin B1 7 nmol/L (8-30)
[2021-09-20 19:11] LABS: Vitamin A 24 mcg/dL (38-98)
== END 2021-09-14 09:59 | disposition home or self-care (01) ==
LOC: HO.LAB 09:58
PROVIDERS: PCP Family Medicine; Visit Provider Physician Assistant Surgical
DX: K91.2 Postsurgical malabsorption, not elsewhere classified (principal); R94.5 Abnormal results of liver function studies; Z98.84 Bariatric surgery status; Z90.3 Acquired absence of stomach [part of]
CPT/HCPCS: 36415; 80053; 80076; 82248; 82306; 82607; 82728; 82746; 83036; 83540; 84425; 84443; 84590; 84630; 85025; 86140; 99212

== ENCOUNTER → 2021-10-03 13:59 | Outpatient (BNVA) | payer OTHER, SELFPAY | PROVIDERS: PCP Family Medicine; Visit Provider Internal Medicine Gastroenterology | DX: R10.33 Periumbilical pain (principal); R30.0 Dysuria | CPT/HCPCS: 99212 ==

== ENCOUNTER → 2021-10-04 08:06 | Outpatient (BNVA) | payer OTHER, SELFPAY | PROVIDERS: PCP Family Medicine; Visit Provider Dietitian, Registered | DX: R63.4 Abnormal weight loss (principal); Z98.84 Bariatric surgery status | CPT/HCPCS: 97803 ==

== ENCOUNTER → 2021-10-21 08:08 | Outpatient (BNVA) | payer OTHER, SELFPAY | PROVIDERS: PCP Family Medicine; Visit Provider Physician Assistant Surgical | DX: Z98.84 Bariatric surgery status (principal); R94.5 Abnormal results of liver function studies ==

== ENCOUNTER → 2022-01-06 10:28 | Outpatient (BNVA) | payer OTHER, SELFPAY | PROVIDERS: PCP Family Medicine; Visit Provider Internal Medicine Gastroenterology | DX: Z13.89 Encounter for screening for other disorder (principal) ==

== ENCOUNTER 2022-03-28 12:29 | Outpatient (REF) | payer OTHER, SELFPAY ==
[2022-03-28 12:45] LABS: MANUAL DIFF FLAG NO
[2022-03-28 12:52] LABS: Basophils Absolute Auto 0.1 X10*3/uL (0.0-0.2); Basophils Percent Auto 0.5 % (0-2); Eosinophils Absolute Auto 0.2 X10*3/uL (0.0-0.4); Eosinophils Percent Auto 1.7 % (0-4); Hematocrit 43.5 % (37.0-47.0); Hemoglobin 14.3 g/dl (12.0-16.0); Imm Gran Abs Auto 0.03 X10*3/uL (0.00-0.03); Imm Gran Pct Auto 0.3 % (0.0-0.4); Lymphocytes Absolute Auto 2.4 X10*3/uL (1.2-4.9); Lymphocytes Percent Auto 26.3 % (20-40); Mean Corpuscular HGB Conc 32.9 g/dl (31.0-35.0); Mean Corpuscular Hemoglobin 30.5 pg (27.0-33.0); Mean Corpuscular Volume 92.8 fL (80.0-98.0); Mean Platelet Volume 10.2 fL (9.4-12.3); Monocytes Absolute Auto 0.7 X10*3/uL (0.1-1.2); Monocytes Percent Auto 7.6 % (2-11); Neutrophils Absolute Auto 5.9 x10*3/uL (2.0-8.3); Neutrophils Percent Auto 63.6 % (45-73); Platelet Count 285 X10*3/uL (160-400); Red Blood Count 4.69 X10*6/uL (4.20-5.50); Red Cell Distribution Width 13.2 % (11.0-16.0); White Blood Count 9.2 X10*3/uL (4.8-10.8)
[2022-03-28 13:06] LABS: Estimated Average Glucose 94 mg/dL; Hemoglobin A1C 114.6314 umol/L; Hemoglobin A1c % 4.9 %
[2022-03-28 13:18] LABS: Alanine Aminotransferase 45 U/L (0-31); Albumin Level 4.1 g/dL (3.5-5.0); Alkaline Phosphatase 136 U/L (39-117); Anion Gap 13 (12-20); Aspartate Amino Transferase 31 U/L (5-31); Bilirubin Total 0.5 mg/dL (0.0-1.0); Blood Urea Nitrogen 15 mg/dL (9-16); C Reactive Protein 0.07 mg/dL (< or = 0.50); Calcium 8.8 mg/dL (8.4-10.2); Carbon Dioxide 27 mmol/L (22-29); Chloride 103 mmol/L (96-108); Cholesterol 132 mg/dL; Estimated Glomerular Filt Rate > 60; Glucose Random 93 mg/dL (60-115); HDL Cholesterol 42 mg/dL; Iron 67 mcg/dL (30-160); LDL Cholesterol Calculated 77 mg/dl; Percent Iron Saturation 17 % (15-50); Sodium 139 mmol/L (135-145); Total Iron Binding Capacity 404 mcg/dL (228-428); Total Protein 6.4 g/dL (6.5-8.0); Triglycerides 69 mg/dL; Unsaturated Iron Binding 337 ug/dL
[2022-03-28 13:40] LABS: Ferritin 7 ng/mL (10-122); Insulin 9 uU/mL (2-29); TSH reflex Free T4 1.82 uIU/mL (0.32-4.0); Vitamin D 25-OH Total 45.2 ng/mL (>30)
[2022-03-28 14:18] LABS: Folate > 20.0 ng/mL (> or = 4.0); Vitamin B12 1157 pg/mL (200-900)
[2022-03-29 15:47] LABS: Calcium (PTHI) 8.9 mg/dL (8.6-10.2); PTHI 67 pg/mL (16-77)
[2022-03-31 23:06] LABS: Zinc 53 mcg/dL (60-130)
[2022-04-02 11:12] LABS: Vitamin B1 68 nmol/L (8-30)
[2022-04-04 12:27] LABS: Vitamin A 33 mcg/dL (38-98)
== END 2022-03-28 12:30 | disposition home or self-care (01) ==
LOC: HO.LAB 12:29
PROVIDERS: PCP Family Medicine; Visit Provider Physician Assistant Surgical
DX: R10.33 Periumbilical pain (principal); K91.2 Postsurgical malabsorption, not elsewhere classified; Z90.3 Acquired absence of stomach [part of]
CPT/HCPCS: 36415; 80053; 80061; 82306; 82607; 82728; 82746; 83036; 83525; 83540; 83970; 84425; 84443; 84590; 84630; 85025; 86140

== ENCOUNTER 2022-10-12 09:18 | Outpatient (REF) | payer OTHER, SELFPAY ==
[2022-10-13 15:20] LABS: H Pylori Breath Test Negative (Negative)
== END 2022-10-12 09:19 | disposition home or self-care (01) ==
LOC: CF 09:18
PROVIDERS: PCP Family Medicine; Visit Provider Internal Medicine Gastroenterology
DX: Z11.2 Encounter for screening for other bacterial diseases (principal)
CPT/HCPCS: 36415; 83013